=== PATIENT | female | born 1955 | race Caucasian/White ===

== ENCOUNTER 2020-01-12 10:56 | Observation (INO) | payer OTHER ==
--- NOTE | 2020-01-12 11:28 | PDOC ---
History of Present Illness - General Chief Complaint: Chest Pain Stated Complaint: CHEST PAIN Time Seen by Provider: 01/12/20 11:19 History Source: Patient Exam Limitations: Language Barrier - History of Present Illness Initial Comments: 64yF w PMHx HTN morbid obesity presenting w sudden onset moderate midsternal/L chest heaviness which woke her up from sleep at 2am this morning. Pain better sitting up, non exertional. Took 1 muscle relaxant w/o relief. EMS gave 1 nitro on scene d/t pt's allergy to aspirin (n/v/reflux). Pt recently moved from [facility] 2 mo ago, does not have PCP here, did not take any meds for HTN. Denies fever, cough, n/v, SOB, ABD pain, leg swelling. Past History - Medical History Allergies/Adverse Reactions: Allergies Allergy/AdvReac Type Severity Reaction Status Date / Time aspirin AdvReac Verified 01/12/20 11:11 Home Medications: Ambulatory Orders Metoprolol Succinate 0 mg PO DAILY 01/12/20 - Reproductive History Is Patient Now?: No - Psycho-Social/Smoking History Smoking History: Never smoked Have you smoked in the past 12 months: No Information on smoking cessation initiated: No - Substance Abuse Hx (Audit-C & DAST Scrn) How often the patient has a drink containing alcohol: Never Score: In Men: 4 or > Positive; In Women: 3 or > Positive: 0 Screen Result (Pos requires Nsg. Audit-10AR): Negative Review of Systems - Review of Systems Constitutional: No: Chills, Fever HEENTM: No: Eye Pain, Nose Congestion Respiratory: No: Cough, Shortness of Breath Cardiac (ROS): Yes: Chest Pain. No: Palpitations ABD/GI: No: Constipated, Diarrhea, Nausea, Vomiting : No: Burning, Dysuria Musculoskeletal: No: Back Pain, Joint Pain Integumentary: No: Bruising, Flushing Neurological: No: Headache, Seizure Psychiatric: No: Anxiety, Depression Endocrine: No: Intolerance to Cold, Intolerance to Heat Hematologic/Lymphatic: No: Anemia, Blood Clots *Physical Exam - Vital Signs Last Vital Signs Temp Pulse Resp BP Pulse Ox 98.2 F 58 L 17 147/72 98 01/12/20 11:08 01/12/20 13:29 01/12/20 11:08 01/12/20 13:29 01/12/20 13:29 - Physical Exam General Appearance: Yes: Nourished, Appropriately Dressed, Mild Distress, Obese HEENT: positive: EOMI, ROSIE, Normal Voice, Hearing Grossly Normal. negative: Scleral Icterus (R), Scleral Icterus (L) Respiratory/Chest: positive: Chest Tender (sternum, L chest), Lungs Clear, Normal Breath Sounds. negative: Respiratory Distress, Crackles, Rales, Rhonchi, Stridor, Wheezing Cardiovascular: positive: Regular Rhythm, Regular Rate, S1, S2. negative: Murmur Gastrointestinal/Abdominal: positive: Normal Bowel Sounds, Flat, Soft. negative: Tender, Organomegaly Extremity: negative: Pedal Edema Integumentary: positive: Normal Color, Warm. negative: Dry Neurologic: positive: Fully Oriented, Alert, Normal Mood/Affect, Normal Response, Responsive Heart Score/ECG Review - History History: Moderately suspicious - Electrocardiogram EKG: Non specific repolarization disturbance - Age Age: 45-65 - Risk Factors Risk Factors Heart Score: No Hx Hypercholesterolemia, Yes Hx Hypertension, No Hx Diabetes, No Smoking History, No Positive family hx of cardiac disease, Yes Hx Obesity Based on the list above the patient has:: 1-2 risk factors - Troponin Troponin: </= normal limit - Score Heart Score - Total: 4 ED Treatment Course - LABORATORY CBC & Chemistry Diagram: 01/12/20 11:25 01/12/20 11:25 - ADDITIONAL ORDERS Additional order review: Laboratory Results 01/12/20 01/12/20 01/12/20 11:25 11:25 11:25 PT with INR 12.30 INR 1.04 Sodium 141 Potassium 4.4 Chloride 106 Carbon Dioxide 29 Anion Gap 6 L BUN 17.5 Creatinine 0.8 Est GFR (CKD-EPI)AfAm 90.94 Est GFR (CKD-EPI)NonAf 78.46 Random Glucose 112 H Calcium 8.8 Total Bilirubin 0.2 AST 28 ALT 19 Alkaline Phosphatase 135 H Creatine Kinase 71 Troponin I < 0.02 B-Natriuretic Peptide 37.8 Total Protein 7.2 Albumin 3.0 L 01/12/20 11:25 RBC 4.60 MCV 87.5 MCHC 31.8 L RDW 15.6 MPV 9.6 Neutrophils % 65.2 Lymphocytes % 27.6 Monocytes % 5.1 Eosinophils % 1.6 Basophils % 0.5 - RADIOLOGY Radiology Studies Ordered: Category Date Time Status CXRPORT [CHEST X-RAY PORTABLE*] [RAD] Stat Radiology 01/12/20 11:22 Taken - Medications Given in the ED: ED Medications Discontinued Medications Generic Name Dose Route Start Last Admin Trade Name Ayo PRN Reason Stop Dose Admin Ibuprofen 600 mg 01/12/20 11:54 01/12/20 12:24 Motrin - PO 01/12/20 11:55 600 mg ONCE ONE Administration Medical Decision Making - Medical Decision Making 01/12/20 12:03 EKG - sinus rhythm w 1st deg AV block, flat T waves V3-6, poor R wave progr ession, HR 67, QTc 401 CXR - small L pleural effusion, no consolidation/infiltrates --- 64yF w PMHx HTN morbid obesity presenting w sudden onset moderate midsternal/L chest heaviness which woke her up from sleep at 2am this morning. Ddx : ACS (HEART 4, numerous risk factors, abnormal EKG) vs costochondritis (chest tender). Low concern for pericarditis (no recent infection) vs PNA (no consolidation) Given ibuprofen Admit tele/obvs hospitalist for chest pain, ACS r/o, HEART 4 and abnormal EKG - needs PCP and cards referral when discharged No PCP Discharge - Discharge Information Problems reviewed: Yes Clinical Impression/Diagnosis: Chest pain Qualifiers: Chest pain type: unspecified Qualified Code(s): R07.9 - Chest pain, unspecified Condition: Improved - Follow up/Referral Referrals: ON STAFF,NOT [Primary Care Provider] - - Patient Discharge Instructions - Post Discharge Activity
[2020-01-12] MEDS ORDERED: IBUPROFEN 600 MG TABLET (FP) PO ONE ×2 (11:54→12:17)
--- NOTE | 2020-01-12 12:02 | PDOC ---
Heart Score/ECG Review - History History: Moderately suspicious - Electrocardiogram EKG: Non specific repolarization disturbance - Age Age: 45-65 - Risk Factors Risk Factors Heart Score: Yes Hx Hypertension, Yes Hx Obesity Based on the list above the patient has:: 1-2 risk factors - Troponin Troponin: </= normal limit - Score Heart Score - Total: 4 - ECG Impressions Comment:: 01/12/20 12:02 EKG performed at [address] elevations no T waves laterally poor R wave progression Interpreted by me
[2020-01-12 12:58] LABS: BASO % 0.5 % (0-2.0); EOS % 1.6 % (0-4.5); HEMATOCRIT 40.2 % (32.4-45.2); HEMOGLOBIN 12.8 GM/dL (10.7-15.3); LYMPH % 27.6 % (8-40); MCH 27.8 pg (25.7-33.7); MCHC 31.8 g/dl (32.0-36.0); MEAN CELL VOLUME 87.5 fl (80-96); MEAN PLT VOLUME 9.6 fl (7.5-11.1); MONO % 5.1 % (3.8-10.2); NEUT % 65.2 % (42.8-82.8); PLATELET COUNT 324 K/MM3 (134-434); RDW 15.6 % (11.6-15.6)
[2020-01-12 13:31] LABS: ALK PHOS 135 U/L (45-117); ANION GAP 6 MMOL/L (8-16); BILIRUBIN,TOTAL 0.2 mg/dL (0.2-1); BLOOD UREA NITROGEN 17.5 mg/dL (7-18); CALCIUM 8.8 mg/dL (8.5-10.1); CHLORIDE 106 mmol/L (98-107); CO2 29 mmol/L (21-32); CREATININE 0.8 mg/dL (0.55-1.3); GLUCOSE,RANDOM 112 mg/dL (74-106); POTASSIUM 4.4 mmol/L (3.5-5.1); SGOT/AST 28 U/L (15-37); SGPT/ALT 19 U/L (13-61); SODIUM 141 mmol/L (136-145); TOT PROT 7.2 g/dl (6.4-8.2)
[2020-01-12 13:32] LABS: INR 1.04 (0.83-1.09); PROTHROMBIN TIME (PATIENT) 12.3 SEC (9.7-13.0)
--- NOTE | 2020-01-12 14:16 | PDOC ---
Documentation entered by Felicita Cui SCRIBE, acting as scribe for Roque Valdes MD. Roque Valdes MD: This documentation has been prepared by the kdibeSee Ana, SCRIBE, under my direction and personally reviewed by me in its entirety. I confirm that the documentation accurately reflects all work, treatment, procedures, and medical decision making performed by me. Attending Attestation - Resident Resident Name: DonitaMasood - ED Attending Attestation I have performed the following: I have examined & evaluated the patient, The case was reviewed & discussed with the resident, I agree w/resident's findings & plan, Exceptions are as noted - HPI HPI: 01/12/20 11:55 Patient is a 64 year old female with a significant past medical history of morbid obesity who presents to the ED with chest heaviness since 2AM this morning. Patient stated the pain woke her up from her sleep and that it is more towards the left side. Patient said the pain gets better when she sits up. Patient disclosed she attempted to self medicate with muscle relaxant prior to ED arrival but experienced no relief. Patient moved here from [facility] 2 months ago. Pain is worse with exertion comes and goes intermittent Patient denies: fever, chills, nausea, vomiting, SOB, cough, abdominal pain, lower extremity swelling, or any other related symptoms. Allergies: aspirin. 01/12/20 14:12 - Physicial Exam PE: 01/12/20 14:12 Vitals: Triage Vital signs reviewed General Appearance: No acute distress, well nourished well developed, Head: Atraumatic, Cardiac: Regular rate and rhythym, no murmurs, no rubs, no gallops, Lungs: Clear to auscultation bilateral, good air movement bilaterally, Abdomen: Soft, non distended, normal bowel sounds, non tender to palpation Extremities: Full range of motion to all extremities, no cyanosis, clubbing, or edema Skin: Warm and dry, no rashes or lesions, no rash, no petechiae Psych: Normal mood, normal affect - Medical Decision Making 01/12/20 14:13 64 years old recently moved from history of obesity hypertension with intermittent chest discomfort left-sided No history of similar Nonspecific EKG first troponin negative heart score 4 We will observe in hospital for serial troponins and further management. Heart Score/ECG Review - History History: Moderately suspicious - Electrocardiogram EKG: Non specific repolarization disturbance - Age Age: 45-65 - Risk Factors Risk Factors Heart Score: Yes Hx Hypertension, Yes Hx Obesity Based on the list above the patient has:: 1-2 risk factors - Troponin Troponin: </= normal limit - Score Heart Score - Total: 4 - ECG Impressions Comment:: 01/12/20 12:[address] elevations flattening of the T waves laterally poor R wave progression Interpreted by me Discharge - Discharge Information Problems reviewed: Yes Clinical Impression/Diagnosis: Chest pain Qualifiers: Chest pain type: unspecified Qualified Code(s): R07.9 - Chest pain, unspecified Condition: Improved - Follow up/Referral - Patient Discharge Instructions - Post Discharge Activity
--- NOTE | 2020-01-12 14:48 | HP ---
CHIEF COMPLAINT: Chest pain PCP: None HISTORY OF PRESENT ILLNESS: 64 y/o F PMHx HTN, PreDM, Obesity presents with Chest pain x 3 days. Patient is primarily chinese speaking, thus a [employer] interpretor was used ([id number]). Patient says the chest pain is primarily over the left chest, Reproducible with palpation, Nonpleuritic, Nonexertional, 9/10 at worst, currently 0/10 during my interview. Patient says she cannot recall what she was doing when the pain came on 3 days ago, but says it comes and goes and is described as sharp and pressure like without radiation. This AM while asleep, the pain woke her prompting her to [facility]. EMS gave 1 nitro in route and patient was brought to [facility]. This is the first time she has felt pain like this. In addition to palpation, the pain is reproduced with Left arm movement. Denies any recent trauma; No associated falls, MVA's, or heavy lifting. She has tried a muscle relaxant (unable to specify the name) without relief, otherwise she not tried anything else at home to relieve the pain but the pain has improved since arrival in the ED. Endorses normally being able to ambulate 1-2 blocks before fatigue sets in. Endorses Medication noncompliance; has not seen her PCP in 4 months and has not taken meds in the past 6 months. Denies any fevers, chills, Palpitations, SOB, Nausea, vomiting, diarrhea, constipation, dysuria, Hematuria, headache, rash/ Denies any recent medication changes or sick contacts. ER course was notable for: (1) Ibuprofen 600mg x1 (2) (3) Recent Travel: Recently moved from 2 months ago PAST MEDICAL HISTORY: As per HPI PAST SURGICAL HISTORY: Umbilical hernia repair x 2 x 3 Social History: Smoking: Denies Alcohol: Denies Drugs: Denies FAMILY HISTORY: Multiple relatives with Cardiac disease and DM Including her brother. Mother and Father without cardiac hx or diabetes. Allergies aspirin Adverse Reaction (Verified 01/12/20 11:11) HOME MEDICATIONS: Home Medications Medication Instructions Recorded Metoprolol Succinate 0 mg PO DAILY 01/12/20 REVIEW OF SYSTEMS As per [facility] PHYSICAL EXAMINATION Vital Signs - 24 hr 01/12/20 01/12/20 01/12/20 11:08 13:08 13:14 Temperature 98.2 F Pulse Rate 78 78 Pulse Rate [ Left] Respiratory 17 Rate Blood Pressure 147/82 Blood Pressure [Left] O2 Sat by Pulse 99 99 99 Oximetry (%) 01/12/20 13:29 Temperature Pulse Rate Pulse Rate [ 58 L Left] Respiratory Rate Blood Pressure Blood Pressure 147/72 [Left] O2 Sat by Pulse 98 Oximetry (%) GENERAL: A&Ox3, NAD HEAD: NCAT EYES: PERRL, EOMI ENT: Oropharynx clear without exudates. Moist mucous membranes. NECK: No JVD LUNGS: Diminished breath sounds at the bases, Otherwise CTAB, No wheezes, no crackles HEART: RRR, S1 S2. Left chest and Left upper back are tender to palpation, no signs of trauma, no ecchymosis, no lacerations. ABDOMEN: Obese, Soft, nontender, not distended, + bowel sounds, no guarding, no rebound MUSCULOSKELETAL: No CVA tenderness. EXTREMITIES: No peripheral edema. NEUROLOGICAL: Cranial nerves II-XII intact. Normal speech. Gross sensation intact throughout. 5/5 muscle strength throughout. PSYCHIATRIC: Cooperative. SKIN: Warm, dry Laboratory Results - last 24 hr 01/12/20 01/12/20 01/12/20 11:25 11:25 11:25 WBC 8.0 RBC 4.60 Hgb 12.8 Hct 40.2 MCV 87.5 MCH 27.8 MCHC 31.8 L RDW 15.6 Plt Count 324 MPV 9.6 Absolute Neuts (auto) 5.2 Neutrophils % 65.2 Lymphocytes % 27.6 Monocytes % 5.1 Eosinophils % 1.6 Basophils % 0.5 Nucleated RBC % 0 PT with INR 12.30 INR 1.04 Sodium 141 Potassium 4.4 Chloride 106 Carbon Dioxide 29 Anion Gap 6 L BUN 17.5 Creatinine 0.8 Est GFR (CKD-EPI)AfAm 90.94 Est GFR (CKD-EPI)NonAf 78.46 Random Glucose 112 H Calcium 8.8 Total Bilirubin 0.2 AST 28 ALT 19 Alkaline Phosphatase 135 H Creatine Kinase 71 Troponin I < 0.02 B-Natriuretic Peptide Total Protein 7.2 Albumin 3.0 L 01/12/20 01/12/20 11:25 13:55 WBC RBC Hgb Hct MCV MCH MCHC RDW Plt Count MPV Absolute Neuts (auto) Neutrophils % Lymphocytes % Monocytes % Eosinophils % Basophils % Nucleated RBC % PT with INR INR Sodium Potassium Chloride Carbon Dioxide Anion Gap BUN Creatinine Est GFR (CKD-EPI)AfAm Est GFR (CKD-EPI)NonAf Random Glucose Calcium Total Bilirubin AST ALT Alkaline Phosphatase Creatine Kinase Troponin I < 0.02 B-Natriuretic Peptide 37.8 Total Protein Albumin ASSESSMENT/PLAN: 64 y/o F PMHx HTN, PreDM, Obesity presents with Chest pain x 3 days. Patient is primarily chinese speaking, thus a [employer] interpretor was used ([employer] [id number]). Patient says the chest pain is primarily over the left chest, Reproducible with palpation, Nonpleuritic, Nonexertional, 9/10 at worst, currently 0/10 during my interview. Patient says she cannot recall what she was doing when the pain came on 3 days ago, but says it comes and goes and is described as sharp and pressure like without radiation. This AM while asleep, the pain woke her prompting her to [facility]. EMS gave 1 nitro in route and patient was brought to [facility]. #Chest Pain -Likely MSK in nature; however given risk factors of HTN, PreDM, Obesity will need r/o ACS -CXR does not reveal Pneumothorax, Infiltrate. -IRVING Risk Index score 21 (Low Risk); Will calculate ASCVD 10 year risk pending further labwork -Trop < 0.02 x1, Trend -EKG without ST segment changes, ?TWI in V1-V3 and T Wave flattening in V4-V6. Will Repeat -ASA 81mg daily; Allergy to ASA is Nausea, vomiting and/or reflux, No hives or anaphylaxis in the past -Ibuprofen PRN for Pain -Check Lipid panel, A1c, TSH -Cardio Consulted; Will discuss the need for inpatient Echo and Stress Test -Monitor on Tele #HTN -Noncompliant with Meds and without PCP follow up -Has been normotensive thus far; Would consider ACEi use if BP > 150/90 given hx of PreDM #PreDM -Check A1c #Obesity -Dietary consult -Lifestyle modifications discussed #FEN -No standing fluids -Replete Lytes PRN -Low Na/DM Diet #PPx -DVT: SQH -GI: PPI while on NSAID Dispo: admit to Tele-Obs Family Medical History Family History: As Documented Visit type - Emergency Visit Emergency Visit: Yes ED Registration Date: 01/12/20 Care time: The patient presented to the Emergency Department on the above date and was hospitalized for further evaluation of their emergent condition. - New Patient This patient is new to me today: Yes Date on this admission: 01/15/20 - Critical Care Critical Care patient: No ATTENDING PHYSICIAN STATEMENT I saw and evaluated the patient. I reviewed the resident's note and discussed the case with the resident. I agree with the resident's findings and plan as documented. SUBJECTIVE: OBJECTIVE: ASSESSMENT AND PLAN:
--- NOTE | 2020-01-12 15:40 | PN ---
Teaching Attending Note Name of Resident: Brandi Funk ATTENDING PHYSICIAN STATEMENT I saw and evaluated the patient. I reviewed the resident's note and discussed the case with the resident. I agree with the resident's findings and plan as documented. SUBJECTIVE: Left-sided chest pain OBJECTIVE: Vital Signs Temperature 98.2 F 01/12/20 11:08 Pulse Rate 58 L 01/12/20 13:29 Respiratory Rate 17 01/12/20 11:08 Blood Pressure 147/72 01/12/20 13:29 O2 Sat by Pulse Oximetry (%) 98 01/12/20 13:29 General: Middle-aged female, comfortable, not in distress, complaint left-sided chest pain HEENT mucous membranes moist, no anemia, no jaundice, PERRLA, no nystagmus Neck: No JVD, supple, no bruit, thyroid palpably normal, normal carotid pulsations. Chest: Tenderness on the left chest wall pectoral area and submammary area, clear to auscultation bilaterally CVS: S1-S2 regular no murmur/gallop/rub Abdomen: Nondistended, soft, bowel sounds present. Extremities: No edema., No Calf tenderness, pulses present FARO DEALER: AO X3 , no gross motor sensory deficit CBC,CMP WBC 8.0 K/mm3 (4.0-10.0) 01/12/20 11:25 RBC 4.60 M/mm3 (3.60-5.2) 01/12/20 11:25 Hgb 12.8 GM/dL (10.7-15.3) 01/12/20 11:25 Hct 40.2 % (32.4-45.2) 01/12/20 11:25 MCV 87.5 fl (80-96) 01/12/20 11:25 MCH 27.8 pg (25.7-33.7) 01/12/20 11:25 MCHC 31.8 g/dl (32.0-36.0) L 01/12/20 11:25 RDW 15.6 % (11.6-15.6) 01/12/20 11:25 Plt Count 324 K/MM3 (134-434) 01/12/20 11:25 MPV 9.6 fl (7.5-11.1) 01/12/20 11:25 Absolute Neuts (auto) 5.2 K/mm3 (1.5-8.0) 01/12/20 11:25 Neutrophils % 65.2 % (42.8-82.8) 01/12/20 11:25 Lymphocytes % 27.6 % (8-40) 01/12/20 11:25 Monocytes % 5.1 % (3.8-10.2) 01/12/20 11:25 Eosinophils % 1.6 % (0-4.5) 01/12/20 11:25 Basophils % 0.5 % (0-2.0) 01/12/20 11:25 Nucleated RBC % 0 % (0-0) 01/12/20 11:25 Sodium 141 mmol/L (136-145) 01/12/20 11:25 Potassium 4.4 mmol/L (3.5-5.1) 01/12/20 11:25 Chloride 106 mmol/L (98-107) 01/12/20 11:25 Carbon Dioxide 29 mmol/L (21-32) 01/12/20 11:25 Anion Gap 6 MMOL/L (8-16) L 01/12/20 11:25 BUN 17.5 mg/dL (7-18) 01/12/20 11:25 Creatinine 0.8 mg/dL (0.55-1.3) 01/12/20 11:25 Est GFR (CKD-EPI)AfAm 90.94 01/12/20 11:25 Est GFR (CKD-EPI)NonAf 78.46 01/12/20 11:25 Random Glucose 112 mg/dL (74-106) H 01/12/20 11:25 Calcium 8.8 mg/dL (8.5-10.1) 01/12/20 11:25 Total Bilirubin 0.2 mg/dL (0.2-1) 01/12/20 11:25 AST 28 U/L (15-37) 01/12/20 11:25 ALT 19 U/L (13-61) 01/12/20 11:25 Alkaline Phosphatase 135 U/L (45-117) H 01/12/20 11:25 Creatine Kinase 71 U/L (26-192) 01/12/20 11:25 Troponin I < 0.02 ng/ml (0.00-0.05) 01/12/20 13:55 B-Natriuretic Peptide 37.8 pg/ml (5-125) 01/12/20 11:25 Total Protein 7.2 g/dl (6.4-8.2) 01/12/20 11:25 Albumin 3.0 g/dl (3.4-5.0) L 01/12/20 11:25 EKG: Normal sinus rhythm first degree heart block nonspecific ST-T changes Chest x-ray: No obstruction no acute infiltrate ASSESSMENT AND PLAN: 64 years old female Grenadian-speaking, poor historian history is taken with a [employer] interpretor ([id number]) history of HTN, PreDM, Obesity remote history of left chest wall trauma, today presented with 3 days history of intermittent left-sided chest wall pain and numbness without any provocation, last night around 2 AM felt severe pain while sleeping came to ED for evaluation, in the ED hemodynamically stable, normal serial cardiac enzyme, EKG shows nonspecific ST changes consisting heart score of 4 admitted for observation to rule out ACS. . Impression: Atypical chest pain Chest pain:HEART score is 4 but presentation is atypical, normal cardiac enzyme EKG nonspecific changes, follow-up lipid panel, TSH, hemoglobin A1c, serial cardiac enzyme and EKGs, at present does not require any blood pressure medication consider telemetry monitoring, Tylenol 650 mg every 6 hourly, patient claims that she has intolerance to aspirin no allergies consider aspirin 81 mg once with antacid aspirin , cardiology consult if patient's remained stable normal serial cardiac enzyme and EKGs and symptoms improved proceeding work-up can be done as an outpatient. Hypertension: Patient has a history of hypertension but not on any medication at present blood pressure is well controlled observe if needed at lisinopril 10 mg and optimize as needed Prediabetic: Random plasma glucose normal 112, follow-up hemoglobin A1c, Accu- Chek twice daily, no indication for correction dose insulin. Obesity: Morbidly obese needs weight reduction. Discussed with the resident, agree plan of care and evaluation.
[2020-01-12] MEDS ORDERED: PANTOPRAZOLE 40 MG TABLET ONE (16:28)
[2020-01-12] MEDS: PANTOPRAZOLE 40 MG TABLET PO SCH (16:55)
[2020-01-12] MEDS ORDERED: ASPIRIN 81 MG CHEWABLE TABLETS ONE (17:17)
[2020-01-12] MEDS: ASPIRIN 81 MG CHEWABLE TABLETS PO SCH (17:17)
--- NOTE | 2020-01-12 17:30 | CON.CARD ---
Consult Consult Specialty:: cardiology Reason for Consultation:: chest heaviness - History of Present Illness Chief Complaint: Pt A&Ox3; chest pain now mild History of Present Illness: Ms. Aldridge is a 64 year old female with a significant past medical history of morbid obesity who presents to the ED with chest heaviness since 2AM this morning. Patient stated the pain woke her up from her sleep and that it is more towards the left side. Patient said the pain gets better when she sits up. Patient disclosed she attempted to self medicate with muscle relaxant prior to ED arrival but experienced no relief. Patient moved here from [facility] 2 months ago. Pain is worse with exertion; comes and goes; intermittent. It started about a month ago; has become more severe and sustained for the past 3 days. - History Source History Provided By: Patient, Medical Record - Past Medical History ...: No - Smoking History Smoking history: Never smoked Have you smoked in the past 12 months: No Home Medications - Allergies Allergies/Adverse Reactions: Allergies Allergy/AdvReac Type Severity Reaction Status Date / Time aspirin AdvReac Verified 01/12/20 11:11 - Home Medications Home Medications: Ambulatory Orders Metoprolol Succinate 0 mg PO DAILY 01/12/20 Vital Signs: Vital Signs Temperature 98.2 F 01/12/20 11:08 Pulse Rate 58 L 01/12/20 13:29 Respiratory Rate 17 01/12/20 11:08 Blood Pressure 147/72 01/12/20 13:29 O2 Sat by Pulse Oximetry (%) 98 01/12/20 13:29 - Other Data Labs, Other Data: CBC, BMP 01/12/20 11:25 01/12/20 11:25 INR, PTT INR 1.04 (0.83-1.09) 01/12/20 11:25 Troponin, BNP 01/12/20 01/12/20 01/12/20 11:25 11:25 13:55 Troponin I < 0.02 < 0.02 B-Natriuretic Peptide 37.8 Troponin, BNP 01/12/20 01/12/20 01/12/20 11:25 11:25 13:55 Troponin I < 0.02 < 0.02 B-Natriuretic Peptide 37.8
[2020-01-12] MEDS ORDERED: HEPARIN NA (PORCINE) 5,000 UNITS/ML 1ML VIAL ONE (18:03)
[2020-01-12] MEDS: HEPARIN NA (PORCINE) 5,000 UNITS/ML 1ML VIAL SQ SCH (18:07)
[2020-01-12 18:55] VITALS: BMI 43.7
[2020-01-12 19:36] LABS: CHOLESTEROL 197 mg/dL (50-200); HDL CHOLESTEROL 50 mg/dL (40-60); LDL CHOLESTEROL (ONLY SJRH) 118 mg/dL (5-100); TRIGLYCERIDES 108 mg/dL (0-150)
[2020-01-13] MEDS: HEPARIN NA (PORCINE) 5,000 UNITS/ML 1ML VIAL SQ SCH ×4 (03:50→22:52)
[2020-01-13 08:04] LABS: BASO % 0.7 % (0-2.0); EOS % 1.5 % (0-4.5); HEMATOCRIT 38.9 % (32.4-45.2); HEMOGLOBIN 12.5 GM/dL (10.7-15.3); MCH 28.5 pg (25.7-33.7); MCHC 32.1 g/dl (32.0-36.0); MEAN CELL VOLUME 88.6 fl (80-96); MEAN PLT VOLUME 9.7 fl (7.5-11.1); MONO % 8.1 % (3.8-10.2); NEUT % 67.7 % (42.8-82.8); PLATELET COUNT 307 K/MM3 (134-434); RBC 4.39 M/mm3 (3.60-5.2); RDW 15.7 % (11.6-15.6); WHITE BLOOD COUNT 10.4 K/mm3 (4.0-10.0)
[2020-01-13 08:17] LABS: BILIRUBIN,TOTAL 0.3 mg/dL (0.2-1); BLOOD UREA NITROGEN 18.8 mg/dL (7-18); CALCIUM 8.5 mg/dL (8.5-10.1); CREATININE 0.6 mg/dL (0.55-1.3); MAGNESIUM 2.2 mg/dL (1.8-2.4); PHOSPHOROUS 3.5 mg/dL (2.5-4.9); POTASSIUM 4.2 mmol/L (3.5-5.1); TOT PROT 6.9 g/dl (6.4-8.2)
[2020-01-13] MEDS: PANTOPRAZOLE 40 MG TABLET PO SCH (09:41)
[2020-01-13] MEDS: ASPIRIN 81 MG CHEWABLE TABLETS PO SCH (09:41)
[2020-01-13] MEDS: IBUPROFEN 600 MG TABLET (FP) PO PRN (09:42)
--- NOTE | 2020-01-13 11:28 | PN ---
Progress Note, Physician Chief Complaint: Events noted (coverage for Dr. Burrows and Whit) Not in distress History of Present Illness: Patient was seen and examined. Awake and alert. Chart was reviewed Denies chest pain, SOB or palpitations - Current Medication List Current Medications: Active Medications Aspirin (Asa -) 81 mg PO DAILY [facility] Last Admin: 01/13/20 09:41 Dose: 81 mg Documented by: Heparin Sodium (Porcine) (Heparin -) 5,000 unit SQ Q8H-IV [facility] Last Admin: 01/13/20 09:41 Dose: 5,000 unit Documented by: Ibuprofen (Motrin -) 600 mg PO Q8H PRN PRN Reason: PAIN LEVEL 6-10 Last Admin: 01/13/20 09:42 Dose: 600 mg Documented by: Pantoprazole Sodium (Protonix -) 40 mg PO DAILY [facility] Last Admin: 01/13/20 09:41 Dose: 40 mg Documented by: - Objective Vital Signs: Vital Signs Temperature 98.0 F 01/13/20 08:42 Pulse Rate 79 01/13/20 08:42 Respiratory Rate 18 01/13/20 08:45 Blood Pressure 137/72 01/13/20 08:42 O2 Sat by Pulse Oximetry (%) 97 01/13/20 08:45 Eyes: Yes: PERRL HENT: Yes: Atraumatic Neck: Yes: Supple Cardiovascular: Yes: Regular Rate and Rhythm, S1, S2 Respiratory: Yes: CTA Bilaterally Gastrointestinal: Yes: Normal Bowel Sounds, Soft. No: Tenderness Edema: No Additional Findings/Remarks: - Review of Systems Constitutional: denies: Chills, Fever Cardiovascular: (+) Chest Pain, denies:Shortness of Breath. denies: Palpitations Respiratory: denies SOB. denies: Cough, Hemoptysis, Orthopnea, PND Gastrointestinal: denies: Abdominal Pain, Constipation, Diarrhea, Melena, Nausea, Rectal Bleeding, Vomiting Neurological: denies: Dizziness, Headache, Seizure, Syncope Labs: CBC, BMP 01/13/20 05:51 01/13/20 05:51 INR, PTT INR 1.04 (0.83-1.09) 01/12/20 11:25 Problem List - Problems (1) HTN (hypertension) Code(s): I10 - ESSENTIAL (PRIMARY) HYPERTENSION (2) Hypercholesterolemia Code(s): E78.00 - PURE HYPERCHOLESTEROLEMIA, UNSPECIFIED (3) Chest pain Code(s): R07.9 - CHEST PAIN, UNSPECIFIED Qualifiers: Chest pain type: unspecified Qualified Code(s): R07.9 - Chest pain, unspecified Assessment/Plan 1. Chest pain, rule out CAD 2. HTN 3. Hypercholesterolemia PLAN: 1. Troponins negative 2. ASA 81 mg QD 3. Add Metoprolol Succinate 25 mg QD 4. Add Atorvastatin 40 mg QHS 5. As per primary cardiology service, schedule nuclear MPI and echocardiography on Wednesday Further plans are to follow Dr. Nunez to resume care on Wednesday Tj Cuevas MD
--- NOTE | 2020-01-13 15:58 | PN ---
Progress Note, Physician Chief Complaint: Stable, with no acute events overnight History of Present Illness: 64 y/o Female PMHx HTN, PreDM, Obesity presents with Chest pain x 3 days. Patient is primarily sao tomean speaking, thus a Sonda41 interpretor was used ([id number]). Patient says the chest pain is primarily over the left chest, Reproducible with palpation, Nonpleuritic, Nonexertional, 9/10 at worst, curren tly 0/10 during my interview. Patient says she cannot recall what she was doing when the pain came on 3 days ago, but says it comes and goes and is described as sharp and pressure like without radiation. This AM while asleep, the pain woke her prompting her to [facility]. EMS gave 1 nitro in route and patient was brought to [facility]. - Current Medication List Current Medications: Active Medications Aspirin (Asa -) 81 mg PO DAILY [facility] Last Admin: 01/13/20 09:41 Dose: 81 mg Documented by: Heparin Sodium (Porcine) (Heparin -) 5,000 unit SQ Q8H-IV [facility] Last Admin: 01/13/20 09:41 Dose: 5,000 unit Documented by: Ibuprofen (Motrin -) 600 mg PO Q8H PRN PRN Reason: PAIN LEVEL 6-10 Last Admin: 01/13/20 09:42 Dose: 600 mg Documented by: Pantoprazole Sodium (Protonix -) 40 mg PO DAILY [facility] Last Admin: 01/13/20 09:41 Dose: 40 mg Documented by: - Objective Vital Signs: Vital Signs Temperature 98.2 F 01/13/20 14:15 Pulse Rate 76 01/13/20 14:15 Respiratory Rate 18 01/13/20 14:15 Blood Pressure 147/76 01/13/20 14:15 O2 Sat by Pulse Oximetry (%) 97 01/13/20 08:45 Constitutional: Yes: Well Nourished, No Distress, Calm Eyes: Yes: WNL, Conjunctiva Clear, EOM Intact HENT: Yes: WNL, Atraumatic, Normocephalic Neck: Yes: WNL, Supple, Trachea Midline, Thyromegaly Cardiovascular: Yes: WNL Respiratory: Yes: WNL, Regular, CTA Bilaterally Gastrointestinal: Yes: WNL, Normal Bowel Sounds, Soft Musculoskeletal: Yes: WNL Extremities: Yes: WNL Edema: No Peripheral Pulses WNL: Yes Integumentary: Yes: WNL Wound/Incision: Yes: Clean/Dry, Well Approximated Neurological: Yes: WNL, Alert, Oriented ...Motor Strength: WNL Psychiatric: Yes: WNL, Alert, Oriented Labs: CBC, BMP 01/13/20 05:51 01/13/20 05:51 INR, PTT INR 1.04 (0.83-1.09) 01/12/20 11:25 Impression/Plan Impression/Plan: 64 y/o Female with a PMHx notable for HTN, PreDM, Obesity presents with Chest pain x 3 days. Patient is primarily sao tomean speaking, thus a Sonda41 interpretor was used ([employer] [id number]). Patient says the chest pain is primarily over the left chest, Reproducible with palpation, Nonpleuritic, Nonexertional, 9/10 at worst, currently 0/10 during my interview. Patient says she cannot recall what she was doing when the pain came on 3 days ago, but says it comes and goes and is described as sharp and pressure like without radiation. This AM while asleep, the pain woke her prompting her to [facility]. EMS gave 1 nitro in route and patient was brought to [facility]. #Chest Pain -Likely MSK in nature; however given risk factors of HTN, Pre-diabetes, Obesity will need r/o ACS -CXR does not reveal Pneumothorax, Infiltrate. -IRVING Risk Index score 21 (Low Risk); Will calculate ASCVD 10 year risk pending further labwork -Trop < 0.02 x1, Trend -EKG without ST segment changes, ?TWI in V1-V3 and T Wave flattening in V4-V6. Will Repeat -ASA 81mg daily; Allergy to ASA is Nausea, vomiting and/or reflux, No hives or anaphylaxis in the past -Ibuprofen PRN for Pain -Lipid panel with MIB=246, Chol 181 TSH normal at 1.03 -Cardio Consulted; Will discuss the need for inpatient Echo and Stress Test -Monitor on Tele #HTN -Noncompliant with Meds and without PCP follow up -Has been normotensive thus far; Would consider ACEi use if BP > 150/90 given hx of PreDM #PreDM -Check A1c=6.0 #Obesity -Dietary consult -Lifestyle modifications discussed #FEN -No standing fluids -Replete Lytes as needed -Low Na/DM Diet #PPx -DVT: SQH SQ8 hours -GI: PPI while on NSAID Visit type - Emergency Visit Emergency Visit: Yes ED Registration Date: 01/12/20 Care time: The patient presented to the Emergency Department on the above date and was hospitalized for further evaluation of their emergent condition. - New Patient This patient is new to me today: Yes Date on this admission: 01/13/20 - Critical Care Critical Care patient: No - Discharge Referral Referred to [facility] Med P.C.: No
[2020-01-13] MEDS: metoPROLOL SUCCINATE 25 MG TAB.SR.24H (FP) PO SCH (17:36)
[2020-01-13] MEDS: ATORVASTATIN CA 40 MG TABLET (FP) PO SCH (22:52)
[2020-01-14] MEDS: HEPARIN NA (PORCINE) 5,000 UNITS/ML 1ML VIAL SQ SCH ×3 (05:45→21:34)
[2020-01-14] MEDS: IBUPROFEN 600 MG TABLET (FP) PO PRN (05:59)
[2020-01-14] MEDS: PANTOPRAZOLE 40 MG TABLET PO SCH (09:33)
[2020-01-14] MEDS: metoPROLOL SUCCINATE 25 MG TAB.SR.24H (FP) PO SCH (09:33)
[2020-01-14] MEDS: ASPIRIN 81 MG CHEWABLE TABLETS PO SCH (09:33)
--- NOTE | 2020-01-14 10:08 | PN ---
Progress Note, Physician Chief Complaint: Events noted (coverage for Dr. Burrows and Whit) Not in distress History of Present Illness: Patient was seen and examined. Awake and alert. Chart was reviewed Denies chest pain, SOB or palpitations - Current Medication List Current Medications: Active Medications Aspirin (Asa -) 81 mg PO DAILY [facility] Last Admin: 01/14/20 09:33 Dose: 81 mg Documented by: Atorvastatin Calcium (Lipitor -) 40 mg PO HS [facility] Last Admin: 01/13/20 22:52 Dose: 40 mg Documented by: Heparin Sodium (Porcine) (Heparin -) 5,000 unit SQ TID [facility] Last Admin: 01/14/20 05:45 Dose: 5,000 unit Documented by: Ibuprofen (Motrin -) 600 mg PO Q8H PRN PRN Reason: PAIN LEVEL 6-10 Last Admin: 01/14/20 05:59 Dose: 600 mg Documented by: Metoprolol Succinate (Toprol Xl -) 25 mg PO DAILY [facility] Last Admin: 01/14/20 09:33 Dose: 25 mg Documented by: Pantoprazole Sodium (Protonix -) 40 mg PO DAILY [facility] Last Admin: 01/14/20 09:33 Dose: 40 mg Documented by: - Objective Vital Signs: Vital Signs Temperature 97.6 F 01/14/20 02:00 Pulse Rate 75 01/14/20 06:00 Respiratory Rate 20 01/14/20 06:00 Blood Pressure 139/75 01/14/20 06:00 O2 Sat by Pulse Oximetry (%) 95 01/14/20 00:00 Neck: Yes: Supple Cardiovascular: Yes: Regular Rate and Rhythm, S1, S2 Respiratory: Yes: CTA Bilaterally Gastrointestinal: Yes: Normal Bowel Sounds, Soft. No: Tenderness Edema: No Additional Findings/Remarks: - Review of Systems Constitutional: denies: Chills, Fever Cardiovascular: (+) Chest Pain, denies:Shortness of Breath. denies: Palpitations Respiratory: denies SOB. denies: Cough, Hemoptysis, Orthopnea, PND Gastrointestinal: denies: Abdominal Pain, Constipation, Diarrhea, Melena, Nausea, Rectal Bleeding, Vomiting Neurological: denies: Dizziness, Headache, Seizure, Syncope Labs: CBC, BMP 01/13/20 05:51 01/13/20 05:51 INR, PTT INR 1.04 (0.83-1.09) 01/12/20 11:25 Problem List - Problems (1) HTN (hypertension) Code(s): I10 - ESSENTIAL (PRIMARY) HYPERTENSION (2) Hypercholesterolemia Code(s): E78.00 - PURE HYPERCHOLESTEROLEMIA, UNSPECIFIED (3) Chest pain Code(s): R07.9 - CHEST PAIN, UNSPECIFIED Qualifiers: Chest pain type: unspecified Qualified Code(s): R07.9 - Chest pain, unspecified Assessment/Plan 1. Chest pain, rule out CAD 2. HTN 3. Hypercholesterolemia PLAN: 1. Troponins negative 2. ASA 81 mg QD 3. Continue Metoprolol Succinate 25 mg QD 4. Continue Atorvastatin 40 mg QHS 5. As per primary cardiology service, scheduled nuclear MPI and echocardiography for Wednesday Further plans are to follow Dr. Nunez to resume care on Wednesday Tj Cuevas MD
--- NOTE | 2020-01-14 11:37 | PN ---
Physical Exam: SUBJECTIVE: Patient seen and examined 01/14/20: pt denies any chest pain or shortness of breath currently; laying in bed comfortably. denies any complaints this am OBJECTIVE: Vital Signs Period Temp Pulse Resp BP Sys/Aguirre Pulse Ox Last 24 Hr 97.6 F-98.2 F 70-83 18-20 133-157/56-76 95-98 GENERAL: The patient is awake, alert, and fully oriented, in no acute distress. HEAD: Normal with no signs of trauma. EYES: extraocular movements intact, sclera anicteric, conjunctiva clear. No ptosis. ENT: Ears normal, nares patent, oropharynx clear without exudates, moist mucous membranes. NECK: Trachea midline, full range of motion, supple. LUNGS: Breath sounds equal, clear to auscultation bilaterally, no wheezes, no crackles, no accessory muscle use. HEART: Regular rate and rhythm, S1, S2 without murmur, rub or gallop. ABDOMEN: Soft, nontender, nondistended, normoactive bowel sounds, no guarding, no rebound, no hepatosplenomegaly, no masses. obese EXTREMITIES: 2+ pulses, warm, well-perfused, no edema. NEUROLOGICAL: Cranial nerves II through XII grossly intact. Normal speech, gait not observed. PSYCH: Normal mood, normal affect. SKIN: Warm, dry, normal turgor, no rashes or lesions noted Active Medications Generic Name Dose Route Start Last Admin Trade Name Freq PRN Reason Stop Dose Admin Aspirin 81 mg 01/12/20 17:00 01/14/20 09:33 Asa - PO 81 mg DAILY [facility] Administration Atorvastatin Calcium 40 mg 01/13/20 22:00 01/13/20 22:52 Lipitor - PO 40 mg HS [facility] Administration Heparin Sodium (Porcine) 5,000 unit 01/13/20 22:00 01/14/20 05:45 Heparin - SQ 5,000 unit TID [facility] Administration Ibuprofen 600 mg 01/12/20 15:14 01/14/20 05:59 Motrin - PO 600 mg Q8H PRN Administration PAIN LEVEL 6-10 Metoprolol Succinate 25 mg 01/13/20 16:30 01/14/20 09:33 Toprol Xl - PO 25 mg DAILY [facility] Administration Pantoprazole Sodium 40 mg 01/12/20 15:30 01/14/20 09:33 Protonix - PO 40 mg DAILY [facility] Administration wbc 10K yest ce neg x 3 ASSESSMENT/PLAN: 64 y/o Female with a PMHx notable for HTN, PreDM, Obesity presents with Chest pain x 3 days. #Chest Pain -Likely MSK in nature; however given risk factors of HTN, Pre-diabetes, Obesity will need r/o ACS CE neg x 3 sets -on ASA 81mg daily; Allergy to ASA is Nausea, vomiting and/or reflux, No hives or anaphylaxis in the past -Ibuprofen PRN for Pain -Lipid panel with ALS=784, Chol 181 TSH normal at 1.03 -Cardio: For nuc stress and echo tomorrow -Monitor on Tele: nsr@60s couple beats of nsvt #HTN -Noncompliant with Meds and without PCP follow up -Bp stable - on toprol currently #PreDM -A1c=6.0 #Obesity -Dietary consult -Lifestyle modifications discussed #FEN -No standing fluids -Replete Lytes as needed -Low Na/DM Diet #PPx -DVT: SQH SQ8 hours -GI: PPI while on NSAID Visit type - Emergency Visit Emergency Visit: Yes ED Registration Date: 01/12/20 Care time: The patient presented to the Emergency Department on the above date and was hospitalized for further evaluation of their emergent condition. - New Patient This patient is new to me today: Yes Date on this admission: 01/14/20 - Critical Care Critical Care patient: No - Discharge Referral Referred to [facility] Med P.C.: No
--- NOTE | 2020-01-14 18:35 | EKG ---
Test Reason : Blood Pressure : / mmHG Vent. Rate : 064 BPM Atrial Rate : 064 BPM P-R Int : 218 ms QRS Dur : 084 ms QT Int : 440 ms P-R-T Axes : 066 062 050 degrees QTc Int : 453 ms SINUS RHYTHM WITH 1ST DEGREE A-V BLOCK NONSPECIFIC T WAVE ABNORMALITY ABNORMAL ECG WHEN COMPARED WITH ECG OF 12-JAN-2020 11:06, QT HAS LENGTHENED Confirmed by MD MISTY, ROSEMARIE ([id number]) on 01/14/2020 6:34:52 PM Referred By: Confirmed By:ROSEMARIE JAY MD
--- NOTE | 2020-01-14 18:45 | EKG ---
Test Reason : Blood Pressure : / mmHG Vent. Rate : 068 BPM Atrial Rate : 068 BPM P-R Int : 220 ms QRS Dur : 080 ms QT Int : 378 ms P-R-T Axes : 060 051 040 degrees QTc Int : 401 ms SINUS RHYTHM WITH 1ST DEGREE A-V BLOCK LEFT VENTRICULAR HYPERTROPHY NONSPECIFIC T WAVE ABNORMALITY ABNORMAL ECG NO PREVIOUS ECGS AVAILABLE Confirmed by MD JAY MOYSES ([id number]) on 01/14/2020 6:45:33 PM Referred By: Confirmed By:ROSEMARIE JAY MD
[2020-01-14] MEDS: ATORVASTATIN CA 40 MG TABLET (FP) PO SCH (21:35)
[2020-01-15] MEDS: HEPARIN NA (PORCINE) 5,000 UNITS/ML 1ML VIAL SQ SCH ×2 (06:08→14:38)
[2020-01-15 07:31] LABS: HEMATOCRIT 38.6 % (32.4-45.2); HEMOGLOBIN 12.4 GM/dL (10.7-15.3); MCH 28.1 pg (25.7-33.7); MCHC 32.1 g/dl (32.0-36.0); MEAN CELL VOLUME 87.6 fl (80-96); MEAN PLT VOLUME 9.4 fl (7.5-11.1); PLATELET COUNT 290 K/MM3 (134-434); RBC 4.41 M/mm3 (3.60-5.2); RDW 15.8 % (11.6-15.6); WHITE BLOOD COUNT 9.2 K/mm3 (4.0-10.0)
[2020-01-15] MEDS ORDERED: DEXTROSE 4 GM TAB.CHEW PO PRN (09:01)
[2020-01-15] MEDS ORDERED: REGADENOSON 0.4 MG/5 ML PRE-FILLED SYRINGE IVPUSH ONE ×2 (09:30→11:51)
[2020-01-15] MEDS: metoPROLOL SUCCINATE 25 MG TAB.SR.24H (FP) PO SCH (14:37)
[2020-01-15] MEDS: ASPIRIN 81 MG CHEWABLE TABLETS PO SCH (14:37)
[2020-01-15] MEDS: PANTOPRAZOLE 40 MG TABLET PO SCH (14:37)
[2020-01-15 15:40] VITALS: PULSE 59
--- NOTE | 2020-01-15 16:24 | DS ---
Physical Exam: SUBJECTIVE: Patient seen and examined OBJECTIVE: Vital Signs Period Temp Pulse Resp BP Sys/Aguirre Pulse Ox Last 24 Hr 97.4 F-98.1 F 59-65 18-20 117-150/50-72 93-97 PHYSICAL EXAM GENERAL: The patient is awake, alert, and fully oriented, in no acute distress. seated in bedside chair HEAD: Normal with no signs of trauma. EYES: PERRL, extraocular movements intact, sclera anicteric, conjunctiva clear. ENT: Ears normal, nares patent, oropharynx clear without exudates, moist mucous membranes. NECK: Trachea midline, full range of motion, supple. LUNGS: Breath sounds equal, clear to auscultation bilaterally, no wheezes, no crackles, no accessory muscle use. HEART: Regular rate and rhythm, S1, S2 without murmur, rub or gallop. ABDOMEN: Soft, nontender, +obese abdomen, normoactive bowel sounds, no guarding, no rebound, no hepatosplenomegaly, no masses. EXTREMITIES: 2+ pulses, warm, well-perfused, no edema. NEUROLOGICAL: Cranial nerves II through XII grossly intact. Normal speech, gait not observed. PSYCH: Normal mood, normal affect. SKIN: Warm, dry, normal turgor, no rashes or lesions noted. LABS Laboratory Results - last 24 hr 01/15/20 01/15/20 06:35 08:39 WBC 9.2 RBC 4.41 Hgb 12.4 Hct 38.6 MCV 87.6 MCH 28.1 MCHC 32.1 RDW 15.8 H Plt Count 290 MPV 9.4 POC Glucometer 77 HOSPITAL COURSE: Date of Admission:01/12/20 Date of Discharge: 01/15/20 Minutes to complete discharge: 50 Discharge Summary Problems reviewed: Yes Reason For Visit: CHEST PAIN Current Active Problems Chest pain (Acute) HTN (hypertension) (Acute) Hypercholesterolemia (Acute) Procedures: Principal: CXR 01/15/2020. Impression: no acute chest pathology. See above. Reported by Dr. Yury Christine MD. EKG: NSR with 1deg AVB. LAbs. trop x 2 negative. Tchol 197. LDL 118. Trig 108. HDL 50. A1C 6.0. COVID- 19 NEGATIVE (not detected) Other Procedures: Nuclear Stress test 01/15/2020. conclusion: 1. appropriate blood pressure response. 2. Patient remained asymptomatic. 3. Non-specific ST changes in inferior and lateral leads. Nuclear Results. 1. small size, mild intensity, apical ischemia. 2. Normal LV contraction, 69% Hospital Course: 64 y/o F PMHx HTN, PreDM, Obesity presents with Chest pain x 3 days. Patient is primarily nepali speaking, thus a [employer] interpretor was used ([employer] [id number]). Patient says the chest pain is primarily over the left chest, Reproducible with palpation, Nonpleuritic, Nonexertional, 9/10 at worst, currently 0/10 during my interview. Patient says she cannot recall what she was doing when the pain came on 3 days ago, but says it comes and goes and is described as sharp and pressure like without radiation. This AM while asleep, the pain woke her prompting her to [facility]. EMS gave 1 nitro in route and patient was brought to [facility]. This is the first time she has felt pain like this. In addition to palpation, the pain is reproduced with Left arm movement. Denies any recent trauma; No associated falls, MVA's, or heavy lifting. She has tried a muscle relaxant (unable to specify the name) without relief, otherwise she not tried anything else at home to relieve the pain but the pain has improved since arrival in the ED. Endorses normally being able to ambulate 1-2 blocks before fatigue sets in. Endorses Medication noncompliance; has not seen her PCP in 4 months and has not taken meds in the past 6 months. Denies any fevers, chills, Palpitations, SOB, Nausea, vomiting, diarrhea, constipation, dysuria, Hematuria, headache, rash/ Denies any recent medication changes or sick contacts. Hospital Course: Pt underwent nuclear stress testing which revealed mild intensity apical ischemia. Medical management continued and patient advised to make lifestyle changes. Pt discharged with primary care and cardiology follow up. (as per daughter, pt received care at [facility] out clinics and since she recently moved to [place] she has not followed up and would like to establish care with providers in [place].) Health Concerns: Discharge Instructions for Angina You have been diagnosed with a type of chest pain called angina. Angina occurs when your heart muscle doesn't get enough oxygen. It's most often felt under your breastbone, in your left shoulder, or down your left arm. The pain may even spread to your jaw or back. Exercise, increased activity, emotional upset, or stress can trigger this pain. With proper treatment and lifestyle changes to reduce risk factors, most people with angina are able to maintain a full and active life. Managing risk factors Your healthcare provider will work with you to make lifestyle changes as needed. This can help prevent worsening of coronary artery disease, which is likely the cause of your angina. Coronary artery disease is a narrowing of the blood vessels that supply oxygen and nutrients to the heart muscle. The blood vessels can also spasm and reduce the oxygen reaching the heart muscle from the narrowing inside of the artery. Managing your risk factors may prevent both of these causes of narrowing of your arteries. Diet Your healthcare provider will give you information on dietary changes that you may need to make, based on your situation. Your provider may recommend that you see a registered dietitian for help with diet changes. Try these changes to start: Eat less fat and cholesterol Eat less salt (sodium), especially if you have high blood pressure Eat more fresh vegetables and fruits Eat lean proteins, such as fish, poultry, and legumes (beans and peas), and eat less red meat and processed meats Use low-fat dairy products Use vegetable and nut oils in limited amounts Limit sweets and processed foods such as chips, cookies, and baked goods Limit sodas and high calorie drinks Limit greasy and fried foods, or those high in saturated fat Limit alcohol intake Physical activity Your healthcare provider may recommend that you increase your physical activity if you have not been as active as possible. This may include moderate to vigorous intensity physical activity for at least 30 to 60 minutes each day for at least 5 to 7 days per week. A few examples of moderate to vigorous intensity physical activity include: Walking at a brisk pace, about 3 to 4 miles per hour Jogging or running Swimming or water aerobics Hiking Dancing Martial arts Tennis Riding a bike Don't start or increase your activity level without first seeing your healthcare provider. Weight management If you are overweight, your healthcare provider will work with you to lose weight and lower your BMI (body mass index) to a normal or near-normal level. Making diet changes and increasing physical activity can help. A healthy and reasonable goal for weight loss is to lose 10% of your current weight per year. Smoking If you smoke or use other tobacco products including chewing tobacco or electronic cigarettes (vaping), get help to quit. Enroll in a stop-smoking program to improve your chances of success. You can also join a support group. Talk to your healthcare provider about nicotine replacement products or medicines to help you quit. Stress Learn ways to manage stress to help you deal with stress in your home and work life. Your ability to prioritize your health depends on your mental health and focus. Feeling supported in the rest of your life is pickard to achieving success with your health. Managing medicines Keep a record of your episodes of chest pain. Take these with you when you see your healthcare provider. Take your medicines exactly as directed. Dont skip doses. If you miss a dose, call your healthcare provider right away. If you have unwanted side effects from your medicine, tell your healthcare provider right away. Plan of Treatment: Please call Primary care provider and wire border assembler to establish care in [place], as expressed in our conversation Goals: Reduced lipid levels start exercise regimen Schedule appointment with: [facility] Address: [address] [place] [address] Dr. Ambrocio Stewart [place] Address: [address] [place] [address] Condition: Improved - Instructions Diet, Activity, Other Instructions: 1. continue ASA 81 mg daily 2. Continue Metoprolol Succinate 25 mg daily 3. Continue Atorvastatin 40 mg at bedtime CARDIAC DIET A healthy diet and lifestyle are your best weapons to fight cardiovascular disease. Its not as hard as you may think! Remember, it's the overall pattern of your choices that counts. Make the simple steps below part of your life for long-term benefits to your health and your heart. Use up at least as many calories as you take in. Start by knowing how many calories you should be eating and drinking to maintain your weight. Nutrition and calorie information on food labels is typically based on a 2,000 calorie per day diet. You may need fewer or more calories depending on several factors including age, gender, and level of physical activity. If you are trying not to gain weight, dont eat more calories than you know you can burn up every day. Increase the amount and intensity of your physical activity to burn more calories. Aim for at least 150 minutes of moderate physical activity or 75 minutes of vigorous physical activity (or an equal combination of both) each week. Regular physical activity can help you maintain your weight, keep off weight that you lose and help you reach physical and cardiovascular fitness. If its hard to schedule regular exercise sessions, look for ways to build short bursts of activity into your daily routine, like parking farther away and taking the stairs instead of the elevator. Ideally, your activity should be spread throughout the week. Eat a variety of nutritious foods from all the food groups. You may be eating plenty of food, but your body may not be getting the nutrients it needs to be healthy. Nutrient-rich foods have minerals, protein, whole grains and other nutrients but are lower in calories. They may help you control your weight, cholesterol and blood pressure. Eat an overall healthy dietary pattern that emphasizes: a variety of fruits and vegetables whole grains low-fat dairy products skinless poultry and fish nuts and legumes non-tropical vegetable oils Limit saturated fat, trans fat, sodium, red meat, sweets and sugar-sweetened beverages. If you choose to eat red meat, compare labels and select the leanest cuts available. One of the diets that fits this pattern is the DASH (Dietary Approaches to Stop Hypertension) eating plan. Most healthy eating patterns can be adapted based on calorie requirements and personal and cultural food preferences. Eat less of the nutrient-poor foods. The right number of calories to eat each day is based on your age and physical activity level and whether you're trying to gain, lose or maintain your weight. You could use your daily allotment of calories on a few high-calorie foods and beverages, but you probably wouldnt get the nutrients your body needs to be healthy. Limit foods and beverages high in calories but low in nutrients. Also limit the amount of saturated fat, trans fat and sodium you eat. Read Nutrition Facts labels carefully the Nutrition Facts panel tells you the amount of healthy and unhealthy nutrients in a food or beverage. Referrals: ON STAFF,NOT [Primary Care Provider] - Disposition: HOME - Home Medications Comprehensive Discharge Medication List: Ambulatory Orders Metoprolol Succinate XL 25mg mg PO DAILY 01/12/20 Lipitor 40mg 1 tablet at bedtime Prescription Drug Monitoring Program (I-STOP) results: I-STOP not reviewed Problem List - Problems (1) Chest pain Code(s): R07.9 - CHEST PAIN, UNSPECIFIED Qualifiers: Chest pain type: unspecified Qualified Code(s): R07.9 - Chest pain, unspecified (2) HTN (hypertension) Code(s): I10 - ESSENTIAL (PRIMARY) HYPERTENSION (3) Hypercholesterolemia Code(s): E78.00 - PURE HYPERCHOLESTEROLEMIA, UNSPECIFIED This patient is new to me today: Yes Date on this admission: 01/15/20 Emergency Visit: Yes ED Registration Date: 01/12/20 Care time: The patient presented to the Emergency Department on the above date and was hospitalized for further evaluation of their emergent condition. Critical Care patient: No - Discharge Referral Referred to [facility] No Physician Referral: Ambrocio Childress MD ([facility]) (please call to schedule an appointment)
--- NOTE | 2020-01-15 16:35 | PN ---
Progress Note, Physician History of Present Illness: Ms. Aldridge is a 64 year old female with a significant past medical history of morbid obesity who presents to the ED with chest heaviness since 2AM this morning. Patient stated the pain woke her up from her sleep and that it is more towards the left side. Patient said the pain gets better when she sits up. Patient disclosed she attempted to self medicate with muscle relaxant prior to ED arrival but experienced no relief. Patient moved here from [facility] months ago. Pain is worse with exertion; comes and goes; intermittent. It started about a month ago; has become more severe and sustained for the past 3 days. - Current Medication List Current Medications: Active Medications Aspirin (Asa -) 81 mg PO DAILY [facility] Last Admin: 01/15/20 14:37 Dose: 81 mg Documented by: Atorvastatin Calcium (Lipitor -) 40 mg PO HS [facility] Last Admin: 01/14/20 21:35 Dose: 40 mg Documented by: Dextrose (Glucose Tablet -) 4 gm PO Q6H PRN PRN Reason: HYPOGLYCEMIA Last Admin: 01/15/20 09:19 Dose: 4 gm Documented by: Heparin Sodium (Porcine) (Heparin -) 5,000 unit SQ TID [facility] Last Admin: 01/15/20 14:38 Dose: 5,000 unit Documented by: Ibuprofen (Motrin -) 600 mg PO Q8H PRN PRN Reason: PAIN LEVEL 6-10 Last Admin: 01/14/20 05:59 Dose: 600 mg Documented by: Metoprolol Succinate (Toprol Xl -) 25 mg PO DAILY [facility] Last Admin: 01/15/20 14:37 Dose: 25 mg Documented by: Pantoprazole Sodium (Protonix -) 40 mg PO DAILY [facility] Last Admin: 01/15/20 14:37 Dose: 40 mg Documented by: - Objective Vital Signs: Vital Signs Temperature 97.8 F 01/15/20 14:00 Pulse Rate 59 L 01/15/20 14:00 Respiratory Rate 20 01/15/20 14:00 Blood Pressure 145/68 01/15/20 14:00 O2 Sat by Pulse Oximetry (%) 96 01/15/20 09:00 Labs: CBC, BMP 01/15/20 06:35 01/13/20 05:51 INR, PTT INR 1.04 (0.83-1.09) 01/12/20 11:25 Assessment/Plan - Problems (1) HTN (hypertension) Code(s): I10 - ESSENTIAL (PRIMARY) HYPERTENSION (2) Hypercholesterolemia Code(s): E78.00 - PURE HYPERCHOLESTEROLEMIA, UNSPECIFIED (3) Chest pain Code(s): R07.9 - CHEST PAIN, UNSPECIFIED Qualifiers: Chest pain type: unspecified Qualified Code(s): R07.9 - Chest pain, unspeci fied Assessment/Plan 1. Chest pain, rule out CAD 2. HTN 3. Hypercholesterolemia PLAN: 1. Troponins negative 2. ASA 81 mg QD 3. Continue Metoprolol Succinate 25 mg QD 4. Continue Atorvastatin 40 mg QHS 5. ECHO and MIBI ST pending
[2020-01-15 18:28] VITALS: BP 159/70; TEMP 97.4
== END 2020-01-15 18:33 | disposition home or self-care (01) ==
LOC: JER 10:56 → JERBED 11:54 → J4W 18:28
PROVIDERS: ADMIT Internal Medicine; ATTEND Nurse Practitioner Family
PROC: 3E023GC Introduction of Other Therapeutic Substance into Muscle, Percutaneous Approach (ICD-10-PCS; principal; 2020-01-12)
PROC: 3E033GC Introduction of Other Therapeutic Substance into Peripheral Vein, Percutaneous Approach (ICD-10-PCS; 2020-01-12)
DX: R07.9 Chest pain, unspecified (principal); E78.00 Pure hypercholesterolemia, unspecified; I10 Essential (primary) hypertension; E66.01 Morbid (severe) obesity due to excess calories; Z68.41 Body mass index [BMI] 40.0-44.9, adult; Z91.09 Other allergy status, other than to drugs and biological substances; Z91.14 Patient's other noncompliance with medication regimen; R73.03 Prediabetes
CPT/HCPCS: 36415; 71045-TC-FY; 78452-TC; 80053; 80061; 82550; 82962; 83036; 83721; 83735; 83880; 84100; 84443; 84484; 85025; 85027; 85610; 93005; 93010; 93017; 96372; 96374; 99285-25; A9502; G0378; J1644; J2785; U0003

== ENCOUNTER 2020-03-05 12:25 | Emergency (ER) | payer OTHER ==
[2020-03-05 12:35] VITALS: BP 182/84; PULSE 72; TEMP 98.3; BMI 43.7
--- NOTE | 2020-03-05 12:40 | PDOC ---
History of Present Illness - General Chief Complaint: Pain, Acute Stated Complaint: VOMITING/DIARRHEA Time Seen by Provider: 03/05/20 12:40 - History of Present Illness Initial Comments: 03/05/20 12:40 HPI: This is a 64 y/o female with a PMH of obesity and HTN presenting to the ED because of 7 days of nausea/vomiting and epigastric pain. The nausea occurs after eating solids, but not liquids, and is followed by NBNB emesis about 30 minutes after eating. She last vomited this morning. The epigastric pain is dull an non-radiating and she denies any prior episodes. Her symptoms improved for a few days, but returned and worsened over the past two days. Surgical hx includes umbilical hernia repair. She has been having bowl movements, last one this a.m. Denies diarrhea or blood. She denies any use of etoh. Denies any chest pain, SOB, fever/chills. ROS: GENERAL/CONSTITUTIONAL: No fever/chills, diaphoresis, or weakness. HEENT: No change in vision. No sore throat. CARDIOVASCULAR: No chest pain, palpitations or peripheral edema RESPIRATORY: No shortness of breath, dyspnea with exertion, cough GASTROINTESTINAL: Yes epigastric abdominal pain, nausea, and nbnb emesis. Denies diarrhea or constipation. GENITOURINARY: No dysuria, frequency NEUROLOGIC: No headache, vertigo, focal weakness HEMATOLOGIC/LYMPHATIC: No anemia, easy bleeding, or history of blood clots. PMH: Obesity, HTN PSx: hemorrhoids, umbilical hernia Social Hx: Denied etoh, tobacco, drug use Meds: See nurse note Allergies: See nurse note PE: GENERAL: Awake, alert, and fully oriented, in no acute distress. Patient is cameroonian speaking, daughter at bedside to translate. HEENT: Normocephalic, atraumatic. PERRLA, EOMI. NECK: Normal ROM and supple. CARDIOVASCULAR: Regular rate and rhythm, normal S1 and S2 PULMONARY: No respiratory distress. Breath sounds equal, clear to auscultation bilaterally. ABDOMEN: ttp in epigastric and RUQ, normoactive bowel sounds. No guarding, no rebound. No masses. EXTREMITIES: Normal range of motion, no edema or erythema NEUROLOGICAL: Cranial nerves II through XII grossly intact. Normal speech, normal gait SKIN: Warm, Dry MDM: 03/05/20 13:04 This is a 64 y/o female with a PMH of obesity and HTN presenting to the ED because of 7 days of nausea/vomiting and epigastric pain. - Worse after eating - Having bowel movements - No associated diarrhea - Afebrile. Hemodynamically stable. ddx: cholecystitis, pancreatitis, SBO, gastric ulcer, acs - CBC, CMP, Cardiac profile, LA, lipase - EKG, CXR, U/S RUQ - Tylenol for pain, pepcid, zofran for nausea, fluids - Will order U/S 03/05/20 15:07 - Patient is feeling better after tylenol, pepcid, zofran - She says shes very hungry 03/05/20 15:14 - CBC wnl - Pending CMP, lactic, lipase, troponin and U/S read 03/05/20 15:15 - Alk phos 177 up from 129 in December - LA 1.9 - Lipase 129 - Creatinine .7 - Troponin neg 03/05/20 15:30 U/S: IMPRESSION: Mild diffuse gallbladder wall thickening is noted which could be on the basis of acute or chronic cholecystitis. Additional imaging evaluation is suggested, emergent versus nonemergent as clinically indicated. No definite gallbladder calculus is visualized. There is no biliary tract dilatation. 03/05/20 15:43 - Patient reports that she has no pain, no nausea - No ttp on repeat abdominal exam - Will PO challenge 03/05/20 16:43 - Patient was able to eat without pain, nausea, or vomiting - Patient reports she still has no abdominal pain - Benign repeat abdominal exam - Spoke with patient and daughter about d/c instructions - Patient stable to d/c with outpatient follow-up, return precautions - Will refer to [facility], send zofran to pharmacy Past History - Medical History Allergies/Adverse Reactions: Allergies Allergy/AdvReac Type Severity Reaction Status Date / Time aspirin AdvReac Verified 03/05/20 12:33 Home Medications: Ambulatory Orders Atorvastatin Ca [Lipitor] 40 mg PO HS 30 Days #30 tablet 01/15/20 Metoprolol Succinate [Toprol XL -] 25 mg PO DAILY 30 Days #30 tab.sr.24h 01/15/20 Pantoprazole Sodium [Protonix -] 40 mg PO DAILY 30 Days #30 tablet.ec 01/15/20 Ondansetron HCl [Zofran] 4 mg PO TID PRN #15 tablet 03/05/20 COPD: No CHF: No Diabetes: No HTN: Yes Hypercholesterolemia: No - Immunization History Immunization Up to Date: No - Psycho-Social/Smoking History Smoking History: Never smoked Have you smoked in the past 12 months: No - Substance Abuse Hx (Audit-C & DAST Scrn) How often the patient has a drink containing alcohol: Never Score: In Men: 4 or > Positive; In Women: 3 or > Positive: 0 Screen Result (Pos requires Nsg. Audit-10AR): Negative In the last yr the pt used illegal drug/Rx for NonMed reason: No Score: Yes response is considered Positive: 0 Screen Result (Positive result requires Nsg. DAST-10): Negative *Physical Exam - Vital Signs Last Vital Signs Temp Pulse Resp BP Pulse Ox 98.3 F 72 20 182/84 H 100 03/05/20 12:33 03/05/20 12:33 03/05/20 12:33 03/05/20 12:33 03/05/20 12:33 ED Treatment Course - LABORATORY CBC & Chemistry Diagram: 03/05/20 13:15 03/05/20 13:15 Discharge - Discharge Information Problems reviewed: Yes Clinical Impression/Diagnosis: Nausea & vomiting Qualifiers: Vomiting type: unspecified Vomiting Intractability: non-intractable Qualified Code(s): R11.2 - Nausea with vomiting, unspecified Condition: Improved Disposition: HOME - Admission No - Additional Discharge Information Prescriptions: Ondansetron HCl [Zofran] 4 mg PO TID PRN #15 tablet PRN Reason: Nausea - Follow up/Referral Referrals: [facility] [place] [Provider Group] - Patient Discharge Instructions Patient Printed Discharge Instructions: DI for Nausea -- Adult, DI for Vomiting -- Adult Additional Instructions: You were seen in the ED today because of nausea and vomiting. We did labs which showed an elevated liver enzyme. This has been elevated before and most likely represents something chronic. You should follow up with a primary care physician in the next week. We gave you a referral to the [facility] to find a doctor. We sent a prescription for zofran to your pharmacy. You can take this up to three times a day as needed for nausea. You can also get 20 mg Pepcid over the counter. You should try and only eat bland foods. Don't eat anything fatty or greasy. Please return to the ED with any new or worsening symptoms. Return if you have nausea and vomiting that doesn't go away, if you develop a fever, or your abd ominal pain worsens. - Post Discharge Activity
[2020-03-05] MEDS ORDERED: SODIUM CHLORIDE 0.9% 500 ML INFUS.BAG IV ONE (13:06)
[2020-03-05] MEDS ORDERED: ACETAMINOPHEN 1000 MG/100 ML VIAL (NON FORMULARY) IVPB ONE (13:06)
[2020-03-05] MEDS ORDERED: FAMOTIDINE 20 MG TABLET PO ONE (13:06)
[2020-03-05] MEDS ORDERED: ONDANSETRON 4 MG TABLET PO ONE (13:08)
--- NOTE | 2020-03-05 13:20 | PDOC ---
Attending Attestation - Resident Resident Name: Verito Ware - ED Attending Attestation I have performed the following: I have examined & evaluated the patient, The case was reviewed & discussed with the resident, I agree w/resident's findings & plan, Exceptions are as noted - HPI HPI: 64 yo F history obesity, HTN presents with 7 day history of N/V and epigastric pain, associated with eating solids, not liquids. Vomited this morning. Pain is localized, does nto radiate. Symptoms improved, but then returned again. No diarrhea, no fever, no known sick contacts. - Physicial Exam PE: GENERAL: Awake, alert, and fully oriented, in no acute distress HEAD: No signs of trauma EYES: PERRLA, EOMI, sclera anicteric, conjunctiva clear ENT: Auricles normal inspection, hearing grossly normal, nares patent, oropharynx clear without exudates. Moist mucosa NECK: Normal ROM, supple, no lymphadenopathy, JVD, or masses LUNGS: Breath sounds equal, clear to auscultation bilaterally. No wheezes, and no crackles HEART: Regular rate and rhythm, normal S1 and S2, no murmurs, rubs or gallops ABDOMEN: Soft, +Mild epigastric and RUQ tenderness, normoactive bowel sounds. No guarding, no rebound. No masses EXTREMITIES: Normal range of motion, no edema. No clubbing or cyanosis. No cords, erythema, or tenderness NEUROLOGICAL: Cranial nerves II through XII grossly intact. Normal speech, normal gait. Motor and sensation intact SKIN: Warm, dry, normal turgor, no rashes or lesions noted. - Medical Decision Making Labs show normal TBili, lipase. RUQ sono no acute findings. Improved with GI cocktail. No signs of acute abdomen. Stable for DC home. Discharge - Discharge Information Problems reviewed: Yes Clinical Impression/Diagnosis: Nausea & vomiting Qualifiers: Vomiting type: unspecified Vomiting Intractability: non-intractable Qualified Code(s): R11.2 - Nausea with vomiting, unspecified Condition: Improved Disposition: HOME - Additional Discharge Information Prescriptions: Ondansetron HCl [Zofran] 4 mg PO TID PRN #15 tablet PRN Reason: Nausea - Follow up/Referral Referrals: [facility] [Provider Group] - Patient Discharge Instructions Patient Printed Discharge Instructions: DI for Nausea -- Adult, DI for Vomiting -- Adult Additional Instructions: You were seen in the ED today because of nausea and vomiting. We did labs which showed an elevated liver enzyme. This has been elevated before and most likely represents something chronic. You should follow up with a primary care physician in the next week. We gave you a referral to the [facility] to find a doctor. We sent a prescription for zofran to your pharmacy. You can take this up to three times a day as needed for nausea. You can also get 20 mg Pepcid over the counter. You should try and only eat bland foods. Don't eat anything fatty or greasy. Please return to the ED with any new or worsening symptoms. Return if you have nausea and vomiting that doesn't go away, if you develop a fever, or your abdominal pain worsens. - Post Discharge Activity
[2020-03-05] MEDS ORDERED: ACETAMINOPHEN INJECTION 100 ML IVPB ONE (13:21)
[2020-03-05] MEDS ORDERED: ONDANSETRON *ODT* 4 MG TABLET ONE (13:21)
[2020-03-05] MEDS ORDERED: FAMOTIDINE 20 MG TABLET ONE (13:21)
--- OUTSIDE RECORDS SUMMARY | 2020-03-05 13:23 | XMS ---
:1955 Author Organization [facility] Support Name Relationship Address Phone UE, UNEMPLOYED Unavailable Unavailable Unavailable UE Unavailable Unavailable Unavailable PATY SALAS DAUGHTER [address] [place] [address] PATY SALAS Child [address] [place] [place] [address] Re-disclosure Warning The records that you are about to access may contain information from federally- assisted alcohol or drug abuse programs. If such information is present, then the following federally mandated warning applies: This information has been disclosed to you from records protected by federal confidentiality rules (42 CFR part 2). The federal rules prohibit you from making any further disclosure of this information unless further disclosure is expressly permitted by the written consent of the person to whom it pertains or as otherwise permitted by 42 CFR part 2. A general authorization for the release of medical or other information is NOT sufficient for this purpose. The Federal rules restrict any use of the information to criminally investigate or prosecute any alcohol or drug abuse patient.The records that you are about to access may contain highly sensitive health information, the redisclosure of which is protected by Article 27-F of the [facility] Public Health law. If you continue you may haveaccess to information: Regarding HIV / AIDS; Provided by facilities licensed or operated by the [facility] Office of Mental Health; or Provided by the [facility] Office for People With Developmental Disabilities. If such information is present, then the following [facility] mandated warning applies: This information has been disclosed to you from confidential records which are protected by state law. State law prohibits you from making any further disclosure of this information without the specific written consent of the person to whom it pertains, or as otherwise permitted by law. Any unauthorized further disclosure in violation of state law may result in a fine or detention sentence or both. A general authorization for the release of medical or other information is NOT sufficient authorization for further disclosure. Insurance Providers Payer name Policy type Policy ID Covered Covered constitution party's Policy P marga / Coverage constitution party ID relationship to [employer] ormation type douglas [employer] [id number] SP [id number] MEDICAID [id number] SP [id number] Results ID Date Data Source [id number] 01/12/2020 12:00:00 PM EDT [facility] Name Value Range Interpretation Description Data Sup porting Code Source(s) Document(s ) SARS [facility] coronavirus 2 RNA This lab was ordered by [facility] and reported by [facility]. Procedure
[2020-03-05 14:21] LABS: EOS % 0.8 % (0-4.5); HEMATOCRIT 37.8 % (32.4-45.2); HEMOGLOBIN 12.3 GM/dL (10.7-15.3); LYMPH % 15.9 % (8-40); MCH 28.6 pg (25.7-33.7); MCHC 32.6 g/dl (32.0-36.0); MEAN CELL VOLUME 87.7 fl (80-96); MEAN PLT VOLUME 9.2 fl (7.5-11.1); MONO % 3.9 % (3.8-10.2); NEUT % 78.4 % (42.8-82.8); PLATELET COUNT 369 K/MM3 (134-434); RDW 15.8 % (11.6-15.6)
[2020-03-05 15:12] LABS: ALBUMIN 3.2 g/dl (3.4-5.0); ANION GAP 7 MMOL/L (8-16); BLOOD UREA NITROGEN 10.9 mg/dL (7-18); CALCIUM 9.4 mg/dL (8.5-10.1); CHLORIDE 105 mmol/L (98-107); CO2 29 mmol/L (21-32); GLUCOSE,RANDOM 114 mg/dL (74-106); LIPASE 129 U/L (73-393); POTASSIUM 4.9 mmol/L (3.5-5.1); SODIUM 142 mmol/L (136-145)
[2020-03-05 15:14] LABS: CREATININE 0.7 mg/dL (0.55-1.3); SGOT/AST 29 U/L (15-37); SGPT/ALT 20 U/L (13-61)
[2020-03-05 15:16] LABS: ALK PHOS 177 U/L (45-117); BILIRUBIN,TOTAL 0.2 mg/dL (0.2-1); TOT PROT 7.8 g/dl (6.4-8.2)
--- NOTE | 2020-03-06 08:47 | EKG ---
Test Reason : Blood Pressure : / mmHG Vent. Rate : 063 BPM Atrial Rate : 063 BPM P-R Int : 226 ms QRS Dur : 088 ms QT Int : 390 ms P-R-T Axes : 065 061 037 degrees QTc Int : 399 ms POOR DATA QUALITY, INTERPRETATION MAY BE ADVERSELY AFFECTED SINUS RHYTHM WITH 1ST DEGREE A-V BLOCK NONSPECIFIC T WAVE ABNORMALITY ABNORMAL ECG WHEN COMPARED WITH ECG OF 12-JAN-2020 20:06, QT HAS SHORTENED Confirmed by Nigel Walker MD ([id number]) on 03/06/2020 8:46:50 AM Referred By: Confirmed By:Nigel Walker MD
== END 2020-03-05 17:00 | disposition home or self-care (01) ==
LOC: JER 12:25
PROC: 3E0333Z Introduction of Anti-inflammatory into Peripheral Vein, Percutaneous Approach (ICD-10-PCS; principal; 2020-03-05)
DX: R11.2 Nausea with vomiting, unspecified (principal)
CPT/HCPCS: 36415; 71045-TC-FY; 76705-TC; 80053; 83605; 83690; 84484; 85025; 93005; 93010; 99285-25; J0131

== ENCOUNTER 2020-04-15 07:38 | Emergency (ER) | payer OTHER ==
[2020-04-15 07:45] VITALS: BMI 39.0
[2020-04-15] MEDS ORDERED: ONDANSETRON 4 MG/2 ML VIAL IVPUSH ONE (08:31)
[2020-04-15] MEDS ORDERED: FAMOTIDINE 20 MG/50 ML IVPB 20 MG/50 ML MG IVPB ONE ×2 (08:58→09:38)
[2020-04-15] MEDS ORDERED: MAG HYDROX/AL HYDROX/SIMETH 30 ML UNIT-DOSE CUP PO ONE (08:58)
[2020-04-15 09:30] LABS: BASO % 0.5 % (0-2.0); EOS % 2.3 % (0-4.5); HEMATOCRIT 39.2 % (32.4-45.2); HEMOGLOBIN 12.8 GM/dL (10.7-15.3); LYMPH % 22.7 % (8-40); MCHC 32.5 g/dl (32.0-36.0); MEAN CELL VOLUME 86.2 fl (80-96); MEAN PLT VOLUME 8.9 fl (7.5-11.1); MONO % 7.3 % (3.8-10.2); NEUT % 67.2 % (42.8-82.8); PLATELET COUNT 392 K/MM3 (134-434); RBC 4.55 M/mm3 (3.60-5.2); RDW 15.4 % (11.6-15.6); WHITE BLOOD COUNT 8.8 K/mm3 (4.0-10.0)
[2020-04-15] MEDS ORDERED: MAG HYDROX/AL HYDROX/SIMETH 30 ML UNIT-DOSE CUP ONE (09:37)
[2020-04-15 09:39] LABS: INR 1.06 (0.83-1.09); PROTHROMBIN TIME (PATIENT) 12.8 SEC (9.7-13.0)
[2020-04-15 09:42] LABS: ACTIVATED PTT 31.6 SECONDS (25.2-36.5)
[2020-04-15 09:57] LABS: CHLORIDE 104 mmol/L (98-107); SODIUM 139 mmol/L (136-145)
[2020-04-15 09:59] LABS: CALCIUM 9.1 mg/dL (8.5-10.1)
[2020-04-15 10:00] LABS: ALBUMIN 3.3 g/dl (3.4-5.0); ANION GAP 5 MMOL/L (8-16); BLOOD UREA NITROGEN 13.4 mg/dL (7-18); CO2 31 mmol/L (21-32); GLUCOSE,RANDOM 108 mg/dL (74-106); LIPASE 99 U/L (73-393)
[2020-04-15 10:03] LABS: CREATININE 0.7 mg/dL (0.55-1.3); SGOT/AST 26 U/L (15-37); SGPT/ALT 22 U/L (13-61)
[2020-04-15 10:04] LABS: BILIRUBIN,TOTAL 0.8 mg/dL (0.2-1)
[2020-04-15 10:05] LABS: ALK PHOS 194 U/L (45-117); TOT PROT 7.9 g/dl (6.4-8.2)
[2020-04-15 11:22] VITALS: BP 158/80; PULSE 74; TEMP 98
== END 2020-04-15 11:22 | disposition home or self-care (01) ==
LOC: JER 07:38
PROC: 3E033NZ Introduction of Analgesics, Hypnotics, Sedatives into Peripheral Vein, Percutaneous Approach (ICD-10-PCS; principal; 2020-04-15)
PROC: 3E033GC Introduction of Other Therapeutic Substance into Peripheral Vein, Percutaneous Approach (ICD-10-PCS; 2020-04-15)
DX: R10.13 Epigastric pain (principal)
CPT/HCPCS: 36415; 71045-TC-FY; 76700-TC; 80053; 82550; 83690; 84484; 85025; 85610; 85730; 93005; 93010; 99285-25

== ENCOUNTER 2020-04-16 12:31 | Inpatient (IN) | payer OTHER ==
[2020-04-16] MEDS ORDERED: ONDANSETRON 4 MG/2 ML VIAL IVPUSH ONE (12:35)
[2020-04-16] MEDS ORDERED: SODIUM CHLORIDE 1,000 ML IV STA (12:35)
[2020-04-16] MEDS ORDERED: MAG HYDROX/AL HYDROX/SIMETH 30 ML UNIT-DOSE CUP PO ONE (12:49)
[2020-04-16] MEDS ORDERED: FAMOTIDINE 20 MG/50 ML IVPB 20 MG/50 ML MG IVPB ONE ×2 (12:49→13:01)
[2020-04-16] MEDS ORDERED: MAG HYDROX/AL HYDROX/SIMETH 30 ML UNIT-DOSE CUP ONE (13:01)
[2020-04-16] MEDS ORDERED: PANTOPRAZOLE SODIUM 40 MG VIAL IVPUSH ONE (13:31)
[2020-04-16] MEDS ORDERED: PANTOPRAZOLE SODIUM 40 MG VIAL ONE (14:18)
[2020-04-16 14:51] LABS: CHLORIDE 104 mmol/L (98-107); POTASSIUM 4.5 mmol/L (3.5-5.1); SODIUM 139 mmol/L (136-145)
[2020-04-16 14:54] LABS: ANION GAP 5 MMOL/L (8-16); BLOOD UREA NITROGEN 11.3 mg/dL (7-18); CO2 30 mmol/L (21-32); GLUCOSE,RANDOM 129 mg/dL (74-106); LIPASE 92 U/L (73-393)
[2020-04-16 14:55] LABS: INR 1.09 (0.83-1.09); PROTHROMBIN TIME (PATIENT) 13.4 SEC (9.7-13.0)
[2020-04-16 14:56] LABS: BASO % 0.5 % (0-2.0); EOS % 0.4 % (0-4.5); HEMATOCRIT 36.2 % (32.4-45.2); HEMOGLOBIN 11.5 GM/dL (10.7-15.3); LYMPH % 14.5 % (8-40); MCH 27.3 pg (25.7-33.7); MCHC 31.8 g/dl (32.0-36.0); MEAN PLT VOLUME 9.5 fl (7.5-11.1); MONO % 4.5 % (3.8-10.2); NEUT % 80.1 % (42.8-82.8); PLATELET COUNT 393 K/MM3 (134-434); RBC 4.21 M/mm3 (3.60-5.2); RDW 15.2 % (11.6-15.6); SGPT/ALT 22 U/L (13-61); WHITE BLOOD COUNT 12.4 K/mm3 (4.0-10.0)
[2020-04-16 14:57] LABS: CREATININE 0.7 mg/dL (0.55-1.3); SGOT/AST 33 U/L (15-37)
[2020-04-16 14:58] LABS: BILIRUBIN,TOTAL 0.3 mg/dL (0.2-1); TOT PROT 7.7 g/dl (6.4-8.2)
[2020-04-16 14:59] LABS: ALK PHOS 194 U/L (45-117)
[2020-04-16 15:01] LABS: N-TERMINAL BNP 112.4 pg/ml (5-125)
[2020-04-16] MEDS: PANTOPRAZOLE SODIUM 80 MG in SODIUM CHLORIDE 100 ML IVPB SCH (17:12)
[2020-04-16] MEDS ORDERED: DEXTROSE 5%-0.45% SALINE 1,000 ML IV SCH (18:30)
[2020-04-16] MEDS ORDERED: METOPROLOL TARTRATE 5 MG/5 ML VIAL IVPUSH PRN ×2 (18:35→19:15)
[2020-04-16] MEDS: DEXTROSE 5%-0.45% SALINE 1,000 ML IV SCH (18:51)
[2020-04-16] MEDS: ONDANSETRON 4 MG/2 ML VIAL IVPUSH SCH (20:29)
[2020-04-16 21:28] LABS: HEMATOCRIT 32.1 % (32.4-45.2); HEMOGLOBIN 10.4 GM/dL (10.7-15.3); MCH 27.9 pg (25.7-33.7); MCHC 32.5 g/dl (32.0-36.0); MEAN PLT VOLUME 8.6 fl (7.5-11.1); PLATELET COUNT 330 K/MM3 (134-434); RBC 3.74 M/mm3 (3.60-5.2); RDW 15.1 % (11.6-15.6); WHITE BLOOD COUNT 10.2 K/mm3 (4.0-10.0)
[2020-04-16] MEDS ORDERED: PANTOPRAZOLE 40 MG TABLET PO SCH (22:00)
[2020-04-16 22:21] LABS: URINE APPEARANCE CLEAR; URINE BILIRUBIN NEGATIVE (NEGATIVE); URINE COLOR YELLOW; URINE GLUCOSE (UA) NEGATIVE (NEGATIVE); URINE KETONE NEGATIVE (NEGATIVE); URINE LEUK ESTERASE NEGATIVE (NEGATIVE); URINE NITRITE NEGATIVE (NEGATIVE); URINE PROTEIN NEGATIVE (NEGATIVE); URINE UROBILINOGEN 0.2 mg/dL (0.2-1.0)
[2020-04-17] MEDS: ONDANSETRON 4 MG/2 ML VIAL IVPUSH SCH ×3 (01:04→13:27)
[2020-04-17] MEDS: PANTOPRAZOLE SODIUM 80 MG in SODIUM CHLORIDE 100 ML IVPB SCH ×5 (02:21→21:41)
[2020-04-17 02:57] VITALS: BMI 43.3
[2020-04-17 07:39] LABS: HEMATOCRIT 32.8 % (32.4-45.2); HEMOGLOBIN 10.7 GM/dL (10.7-15.3); MCH 28.4 pg (25.7-33.7); MCHC 32.5 g/dl (32.0-36.0); MEAN CELL VOLUME 87.3 fl (80-96); MEAN PLT VOLUME 8.9 fl (7.5-11.1); PLATELET COUNT 324 K/MM3 (134-434); RBC 3.76 M/mm3 (3.60-5.2); RDW 15.7 % (11.6-15.6)
[2020-04-17 08:06] LABS: INR 1.11 (0.83-1.09); PROTHROMBIN TIME (PATIENT) 13.4 SEC (9.7-13.0)
[2020-04-17 08:18] LABS: BLOOD UREA NITROGEN 8.2 mg/dL (7-18); CALCIUM 8.6 mg/dL (8.5-10.1)
[2020-04-17 08:19] LABS: MAGNESIUM 2.5 mg/dL (1.8-2.4)
[2020-04-17 08:21] LABS: CHOLESTEROL 142 mg/dL (50-200)
[2020-04-17 08:22] LABS: CREATININE 0.7 mg/dL (0.55-1.3); PHOSPHOROUS 3.2 mg/dL (2.5-4.9); TRIGLYCERIDES 67 mg/dL (0-150)
[2020-04-17 08:23] LABS: LDL CHOLESTEROL (ONLY SJRH) 87 mg/dL (5-100)
[2020-04-17 08:25] LABS: HDL CHOLESTEROL 46 mg/dL (40-60)
[2020-04-17 16:28] LABS: HEMATOCRIT 34.1 % (32.4-45.2); HEMOGLOBIN 10.8 GM/dL (10.7-15.3); MCH 27.4 pg (25.7-33.7); MCHC 31.8 g/dl (32.0-36.0); MEAN CELL VOLUME 86.3 fl (80-96); MEAN PLT VOLUME 8.9 fl (7.5-11.1); PLATELET COUNT 342 K/MM3 (134-434); RBC 3.95 M/mm3 (3.60-5.2); RDW 15.4 % (11.6-15.6)
[2020-04-17] MEDS: DEXTROSE 5%-0.45% SALINE 1,000 ML IV SCH (19:11)
[2020-04-18 08:14] LABS: HEMOGLOBIN 10.9 GM/dL (10.7-15.3); MCH 27.1 pg (25.7-33.7); MCHC 31.1 g/dl (32.0-36.0); MEAN PLT VOLUME 8.9 fl (7.5-11.1); PLATELET COUNT 332 K/MM3 (134-434); RBC 4.02 M/mm3 (3.60-5.2); RDW 15.5 % (11.6-15.6); WHITE BLOOD COUNT 6.4 K/mm3 (4.0-10.0)
[2020-04-18 09:12] LABS: POTASSIUM 3.6 mmol/L (3.5-5.1)
[2020-04-18 09:58] LABS: ALBUMIN 2.7 g/dl (3.4-5.0)
[2020-04-18 09:59] LABS: CALCIUM 8.4 mg/dL (8.5-10.1)
[2020-04-18 10:00] LABS: BLOOD UREA NITROGEN 5.7 mg/dL (7-18)
[2020-04-18 10:03] LABS: TOT PROT 6.6 g/dl (6.4-8.2)
[2020-04-18 10:05] LABS: BILIRUBIN,TOTAL 0.2 mg/dL (0.2-1); CREATININE 0.7 mg/dL (0.55-1.3)
[2020-04-18] MEDS ORDERED: PT OWN MED DRAWER 7, Y5N ONE ×2 (10:28→21:15)
[2020-04-18] MEDS: DEXTROSE 5%-0.45% SALINE 1,000 ML IV SCH ×2 (11:05→18:48)
[2020-04-18] MEDS: PANTOPRAZOLE SODIUM 80 MG in SODIUM CHLORIDE 100 ML IVPB SCH ×3 (11:05→21:16)
[2020-04-18] MEDS ORDERED: METOPROLOL TARTRATE 5 MG/5 ML VIAL IVPB PRN ×2 (14:29→14:41)
[2020-04-19] MEDS: PANTOPRAZOLE SODIUM 80 MG in SODIUM CHLORIDE 100 ML IVPB SCH ×3 (05:31→20:56)
[2020-04-19 07:59] LABS: HEMATOCRIT 37.6 % (32.4-45.2); HEMOGLOBIN 11.8 GM/dL (10.7-15.3); MCH 27.2 pg (25.7-33.7); MCHC 31.4 g/dl (32.0-36.0); MEAN CELL VOLUME 86.7 fl (80-96); PLATELET COUNT 380 K/MM3 (134-434); RBC 4.34 M/mm3 (3.60-5.2); RDW 15.3 % (11.6-15.6); WHITE BLOOD COUNT 9.4 K/mm3 (4.0-10.0)
[2020-04-19 08:02] LABS: BLOOD UREA NITROGEN 3.8 mg/dL (7-18); CALCIUM 8.9 mg/dL (8.5-10.1)
[2020-04-19 08:06] LABS: CREATININE 0.6 mg/dL (0.55-1.3)
[2020-04-19] MEDS ORDERED: PT OWN MED DRAWER 7, Y5N ONE ×2 (10:10→15:49)
[2020-04-19] MEDS: DEXTROSE 5%-0.45% SALINE 1,000 ML IV SCH ×2 (15:51→20:56)
[2020-04-20 03:07] LABS: HEP B CORE AB, TOT Negative (Negative)
[2020-04-20] MEDS ORDERED: PT OWN MED DRAWER 7, Y5N ONE ×2 (03:31→15:54)
[2020-04-20] MEDS: PANTOPRAZOLE SODIUM 80 MG in SODIUM CHLORIDE 100 ML IVPB SCH (03:45)
[2020-04-20 08:25] LABS: HEMATOCRIT 34.2 % (32.4-45.2); HEMOGLOBIN 11.1 GM/dL (10.7-15.3); MCH 28.1 pg (25.7-33.7); MCHC 32.4 g/dl (32.0-36.0); MEAN CELL VOLUME 86.7 fl (80-96); MEAN PLT VOLUME 9.3 fl (7.5-11.1); PLATELET COUNT 364 K/MM3 (134-434); RBC 3.95 M/mm3 (3.60-5.2); RDW 15.2 % (11.6-15.6); WHITE BLOOD COUNT 7.8 K/mm3 (4.0-10.0)
[2020-04-20 08:42] LABS: POTASSIUM 3.7 mmol/L (3.5-5.1)
[2020-04-20 08:44] LABS: CALCIUM 8.7 mg/dL (8.5-10.1)
[2020-04-20 08:45] LABS: BLOOD UREA NITROGEN 5.4 mg/dL (7-18)
[2020-04-20 08:49] LABS: CREATININE 0.6 mg/dL (0.55-1.3)
[2020-04-20] MEDS: metoPROLOL SUCCINATE 25 MG TAB.SR.24H (FP) PO SCH (09:23)
[2020-04-20] MEDS: POLYETHYLENE GLYCOL 3350 119 GM BTL PO SCH ×2 (13:50→21:21)
[2020-04-20] MEDS ORDERED: GLYCERIN 1 RECTAL SUPPOSITORY, ADULT RC ONE (14:00)
[2020-04-20] MEDS: DOCUSATE SODIUM 100 MG CAPSULE (FP) PO SCH (21:20)
[2020-04-20] MEDS: PANTOPRAZOLE 40 MG TABLET PO SCH (21:20)
[2020-04-21 08:16] LABS: BASO % 0.8 % (0-2.0); EOS % 2.8 % (0-4.5); HEMATOCRIT 35.4 % (32.4-45.2); HEMOGLOBIN 11.4 GM/dL (10.7-15.3); LYMPH % 30.3 % (8-40); MCH 28.1 pg (25.7-33.7); MCHC 32.2 g/dl (32.0-36.0); MEAN CELL VOLUME 87.1 fl (80-96); MEAN PLT VOLUME 9.3 fl (7.5-11.1); MONO % 7.8 % (3.8-10.2); NEUT % 58.3 % (42.8-82.8); PLATELET COUNT 354 K/MM3 (134-434); RBC 4.06 M/mm3 (3.60-5.2); RDW 15.2 % (11.6-15.6); WHITE BLOOD COUNT 8.5 K/mm3 (4.0-10.0)
[2020-04-21 08:54] LABS: CALCIUM 8.6 mg/dL (8.5-10.1)
[2020-04-21 08:55] LABS: ALBUMIN 2.6 g/dl (3.4-5.0); BLOOD UREA NITROGEN 14.7 mg/dL (7-18)
[2020-04-21 08:57] LABS: MAGNESIUM 2.2 mg/dL (1.8-2.4)
[2020-04-21 08:58] LABS: CREATININE 0.8 mg/dL (0.55-1.3); PHOSPHOROUS 3.9 mg/dL (2.5-4.9)
[2020-04-21] MEDS: metoPROLOL SUCCINATE 25 MG TAB.SR.24H (FP) PO SCH (08:59)
[2020-04-21] MEDS: PANTOPRAZOLE 40 MG TABLET PO SCH ×2 (08:59→21:27)
[2020-04-21] MEDS: POLYETHYLENE GLYCOL 3350 119 GM BTL PO SCH ×2 (08:59→21:27)
[2020-04-21 09:00] LABS: BILIRUBIN,TOTAL 0.2 mg/dL (0.2-1); TOT PROT 6.6 g/dl (6.4-8.2)
[2020-04-21] MEDS ORDERED: POLYETHYLENE GLYCOL 3350 119 GM BTL PO ONE (11:45)
[2020-04-21] MEDS ORDERED: MINERAL OIL ENEMA 133 ML ENEMA RC ONE (14:25)
[2020-04-21] MEDS: SENNOSIDES 8.6MG TABLET (FP) PO SCH (21:27)
[2020-04-21] MEDS: DOCUSATE SODIUM 100 MG CAPSULE (FP) PO SCH (21:27)
[2020-04-22 07:22] LABS: BASO % 0.6 % (0-2.0); EOS % 3.1 % (0-4.5); HEMATOCRIT 36.7 % (32.4-45.2); HEMOGLOBIN 11.6 GM/dL (10.7-15.3); LYMPH % 29.4 % (8-40); MCH 27.4 pg (25.7-33.7); MCHC 31.5 g/dl (32.0-36.0); MEAN PLT VOLUME 9.3 fl (7.5-11.1); MONO % 7.4 % (3.8-10.2); NEUT % 59.5 % (42.8-82.8); PLATELET COUNT 338 K/MM3 (134-434); RBC 4.22 M/mm3 (3.60-5.2); RDW 15.4 % (11.6-15.6); WHITE BLOOD COUNT 9.2 K/mm3 (4.0-10.0)
[2020-04-22 07:51] LABS: POTASSIUM 5.2 mmol/L (3.5-5.1)
[2020-04-22 07:55] LABS: BLOOD UREA NITROGEN 18.2 mg/dL (7-18); CALCIUM 8.5 mg/dL (8.5-10.1)
[2020-04-22 07:58] LABS: CREATININE 0.8 mg/dL (0.55-1.3)
[2020-04-22] MEDS: metoPROLOL SUCCINATE 25 MG TAB.SR.24H (FP) PO SCH (09:28)
[2020-04-22] MEDS: POLYETHYLENE GLYCOL 3350 119 GM BTL PO SCH ×2 (09:28→21:41)
[2020-04-22] MEDS: PANTOPRAZOLE 40 MG TABLET PO SCH ×2 (09:28→21:40)
[2020-04-22] MEDS: SODIUM ZIRCONIUM CYCLOSILICATE (LOKELMA) 5 GM PACKET PO SCH (10:32)
[2020-04-22] MEDS: DOCUSATE SODIUM 100 MG CAPSULE (FP) PO SCH (21:40)
[2020-04-22] MEDS: SENNOSIDES 8.6MG TABLET (FP) PO SCH (21:40)
[2020-04-23 08:43] LABS: HEMOGLOBIN 11.1 GM/dL (10.7-15.3); MCH 28.4 pg (25.7-33.7); MCHC 32.6 g/dl (32.0-36.0); MEAN CELL VOLUME 87.1 fl (80-96); MEAN PLT VOLUME 9.3 fl (7.5-11.1); PLATELET COUNT 337 K/MM3 (134-434); RBC 3.91 M/mm3 (3.60-5.2); RDW 15.7 % (11.6-15.6); WHITE BLOOD COUNT 9.4 K/mm3 (4.0-10.0)
[2020-04-23 08:57] LABS: CALCIUM 8.4 mg/dL (8.5-10.1)
[2020-04-23 08:58] LABS: BLOOD UREA NITROGEN 22.2 mg/dL (7-18)
[2020-04-23 09:01] LABS: CREATININE 0.8 mg/dL (0.55-1.3)
[2020-04-23] MEDS ORDERED: PT OWN MED DRAWER 7, Y5N ONE (09:56)
[2020-04-23] MEDS: metoPROLOL SUCCINATE 25 MG TAB.SR.24H (FP) PO SCH (10:03)
[2020-04-23] MEDS: POLYETHYLENE GLYCOL 3350 119 GM BTL PO SCH ×2 (10:03→21:26)
[2020-04-23] MEDS: SODIUM ZIRCONIUM CYCLOSILICATE (LOKELMA) 5 GM PACKET PO SCH (10:04)
[2020-04-23] MEDS ORDERED: PANTOPRAZOLE 20 MG TABLET PO SCH (10:25)
[2020-04-23] MEDS: PANTOPRAZOLE 40 MG TABLET PO SCH (11:16)
[2020-04-23] MEDS: ATORVASTATIN CA 10 MG TABLET (FP) PO SCH (21:25)
[2020-04-23] MEDS: DOCUSATE SODIUM 100 MG CAPSULE (FP) PO SCH (21:25)
[2020-04-23] MEDS: SENNOSIDES 8.6MG TABLET (FP) PO SCH (21:26)
[2020-04-24] MEDS ORDERED: ACETAMINOPHEN 1000 MG/100 ML VIAL (NON FORMULARY) IVPB ONE (04:06)
[2020-04-24] MEDS ORDERED: MAG HYDROX/AL HYDROX/SIMETH -MYLANTA- ORAL SUSPENSION PO ONE (07:52)
[2020-04-24 08:13] LABS: HEMATOCRIT 35.7 % (32.4-45.2); HEMOGLOBIN 11.4 GM/dL (10.7-15.3); MCH 27.5 pg (25.7-33.7); MCHC 31.9 g/dl (32.0-36.0); MEAN CELL VOLUME 86.3 fl (80-96); MEAN PLT VOLUME 9.3 fl (7.5-11.1); PLATELET COUNT 360 K/MM3 (134-434); RBC 4.14 M/mm3 (3.60-5.2); RDW 15.7 % (11.6-15.6); WHITE BLOOD COUNT 9.7 K/mm3 (4.0-10.0)
[2020-04-24 08:15] LABS: POTASSIUM 5.1 mmol/L (3.5-5.1)
[2020-04-24 08:18] LABS: CALCIUM 8.8 mg/dL (8.5-10.1)
[2020-04-24 08:19] LABS: BLOOD UREA NITROGEN 15.2 mg/dL (7-18)
[2020-04-24 08:22] LABS: CREATININE 0.7 mg/dL (0.55-1.3)
[2020-04-24] MEDS ORDERED: MAG HYDROX/AL HYDROX/SIMETH 30 ML UNIT-DOSE CUP PO ONE (08:30)
[2020-04-24] MEDS ORDERED: PT OWN MED DRAWER 7, Y5N ONE (09:47)
[2020-04-24] MEDS: metoPROLOL SUCCINATE 25 MG TAB.SR.24H (FP) PO SCH (09:52)
[2020-04-24] MEDS: POLYETHYLENE GLYCOL 3350 119 GM BTL PO SCH ×2 (09:52→21:40)
[2020-04-24] MEDS: PANTOPRAZOLE 40 MG TABLET PO SCH (09:52)
[2020-04-24] MEDS: SENNOSIDES 8.6MG TABLET (FP) PO SCH (21:40)
[2020-04-24] MEDS: ATORVASTATIN CA 10 MG TABLET (FP) PO SCH (21:40)
[2020-04-24] MEDS: DOCUSATE SODIUM 100 MG CAPSULE (FP) PO SCH (21:40)
[2020-04-25 06:44] LABS: HEMATOCRIT 34.8 % (32.4-45.2); HEMOGLOBIN 10.9 GM/dL (10.7-15.3); MCHC 31.4 g/dl (32.0-36.0); MEAN PLT VOLUME 9.1 fl (7.5-11.1); PLATELET COUNT 353 K/MM3 (134-434); RBC 4.05 M/mm3 (3.60-5.2); RDW 15.6 % (11.6-15.6); WHITE BLOOD COUNT 8.6 K/mm3 (4.0-10.0)
[2020-04-25 07:08] LABS: POTASSIUM 4.3 mmol/L (3.5-5.1)
[2020-04-25 07:09] LABS: CALCIUM 8.6 mg/dL (8.5-10.1)
[2020-04-25 07:10] LABS: BLOOD UREA NITROGEN 23.3 mg/dL (7-18)
[2020-04-25 07:13] LABS: CREATININE 0.6 mg/dL (0.55-1.3)
[2020-04-25] MEDS: POLYETHYLENE GLYCOL 3350 119 GM BTL PO SCH ×2 (09:41→21:44)
[2020-04-25] MEDS: PANTOPRAZOLE 40 MG TABLET PO SCH (09:41)
[2020-04-25] MEDS: metoPROLOL SUCCINATE 25 MG TAB.SR.24H (FP) PO SCH (09:41)
[2020-04-25] MEDS: DOCUSATE SODIUM 100 MG CAPSULE (FP) PO SCH (21:44)
[2020-04-25] MEDS: SENNOSIDES 8.6MG TABLET (FP) PO SCH (21:44)
[2020-04-25] MEDS: ATORVASTATIN CA 10 MG TABLET (FP) PO SCH (21:44)
[2020-04-26 08:17] LABS: HEMATOCRIT 35.4 % (32.4-45.2); HEMOGLOBIN 11.1 GM/dL (10.7-15.3); MCH 27.4 pg (25.7-33.7); MCHC 31.5 g/dl (32.0-36.0); MEAN PLT VOLUME 9.1 fl (7.5-11.1); PLATELET COUNT 338 K/MM3 (134-434); RBC 4.07 M/mm3 (3.60-5.2); WHITE BLOOD COUNT 8.4 K/mm3 (4.0-10.0)
[2020-04-26] MEDS ORDERED: ONDANSETRON 4 MG/2 ML VIAL IVPUSH PRN ×2 (08:39→12:03)
[2020-04-26] MEDS ORDERED: LACTATED RINGERS SOLUTION 1,000 ML IV SCH ×2 (08:45→12:03)
[2020-04-26] MEDS ORDERED: LIDOCAINE HCL/PF 2% SDV 5ML VIAL ONE (08:52)
[2020-04-26] MEDS ORDERED: KETOROLAC TROMETHAMINE 30 MG/1 ML VIAL ONE (08:52)
[2020-04-26] MEDS ORDERED: ONDANSETRON 4 MG/2 ML VIAL ONE (08:52)
[2020-04-26] MEDS ORDERED: NEOSTIGMINE METHYLSULFATE 0.5 MG/1 ML - 10 ML MDV ONE (08:53)
[2020-04-26] MEDS ORDERED: GLYCOPYRROLATE 0.2 MG/1 ML VIAL ONE (08:53)
[2020-04-26] MEDS ORDERED: DEXAMETHASONE SOD PHOSPHATE 4 MG/1 ML VIAL ONE (08:56)
[2020-04-26] MEDS ORDERED: ROCURONIUM BROMIDE 50 MG/5 ML SYRINGE ONE (08:57)
[2020-04-26] MEDS ORDERED: PROPOFOL 20 ML ONE ×2 (08:57)
[2020-04-26] MEDS ORDERED: SUCCINYLCHOLINE CHLORIDE 200 MG/10 ML SYRINGE ONE (08:57)
[2020-04-26] MEDS: PANTOPRAZOLE 40 MG TABLET PO SCH (09:00)
[2020-04-26] MEDS: metoPROLOL SUCCINATE 25 MG TAB.SR.24H (FP) PO SCH (09:00)
[2020-04-26] MEDS: POLYETHYLENE GLYCOL 3350 119 GM BTL PO SCH ×2 (09:00→21:26)
[2020-04-26 09:25] LABS: POTASSIUM 4.4 mmol/L (3.5-5.1)
[2020-04-26 09:30] LABS: CALCIUM 8.5 mg/dL (8.5-10.1)
[2020-04-26 09:33] LABS: CREATININE 0.6 mg/dL (0.55-1.3)
[2020-04-26] MEDS ORDERED: ceFAZolin SODIUM 1 GM VIAL ONE (10:14)
[2020-04-26] MEDS ORDERED: SEVOFLURANE 250 ML BTL ONE (10:31)
[2020-04-26] MEDS ORDERED: EPHEDRINE SULFATE/0.9% NACL/PF 50 MG/10 ML SYRINGE NR ONE (10:31)
[2020-04-26] MEDS ORDERED: ACETAMINOPHEN 1000 MG/100 ML VIAL (NON FORMULARY) IVPB PRN (10:57)
[2020-04-26] MEDS ORDERED: ACETAMINOPHEN INJECTION 100 ML IVPB ONE (11:21)
[2020-04-26] MEDS ORDERED: ACETAMINOPHEN 1000 MG/100 ML VIAL (NON FORMULARY) IVPB ONE (11:44)
[2020-04-26] MEDS ORDERED: KETOROLAC TROMETHAMINE 15 MG/ML VIAL IVPUSH PRN (12:03)
[2020-04-26] MEDS: oxyCODONE HCL 5 MG TABLET PO PRN (15:08)
[2020-04-26] MEDS: SENNOSIDES 8.6MG TABLET (FP) PO SCH (21:24)
[2020-04-26] MEDS: DOCUSATE SODIUM 100 MG CAPSULE (FP) PO SCH (21:24)
[2020-04-26] MEDS: ATORVASTATIN CA 10 MG TABLET (FP) PO SCH (21:24)
[2020-04-27] MEDS: oxyCODONE HCL 5 MG TABLET PO PRN ×2 (06:00→21:16)
[2020-04-27 06:11] LABS: CARCINOEMBRYONIC ANTIGEN 1.6 ng/mL (0.0-4.7)
[2020-04-27] MEDS ORDERED: PT OWN MED DRAWER 7, Y5N ONE (10:29)
[2020-04-27] MEDS: POLYETHYLENE GLYCOL 3350 119 GM BTL PO SCH ×2 (10:53→21:17)
[2020-04-27] MEDS: PANTOPRAZOLE 40 MG TABLET PO SCH (10:53)
[2020-04-27] MEDS: metoPROLOL SUCCINATE 25 MG TAB.SR.24H (FP) PO SCH (10:53)
[2020-04-27] MEDS: DOCUSATE SODIUM 100 MG CAPSULE (FP) PO SCH (21:17)
[2020-04-27] MEDS: SENNOSIDES 8.6MG TABLET (FP) PO SCH (21:17)
[2020-04-27] MEDS: ATORVASTATIN CA 10 MG TABLET (FP) PO SCH (21:17)
[2020-04-28 08:13] LABS: BASO % 0.6 % (0-2.0); EOS % 2.3 % (0-4.5); HEMATOCRIT 33.9 % (32.4-45.2); HEMOGLOBIN 10.7 GM/dL (10.7-15.3); LYMPH % 30.9 % (8-40); MCH 27.6 pg (25.7-33.7); MCHC 31.7 g/dl (32.0-36.0); MEAN CELL VOLUME 87.2 fl (80-96); MEAN PLT VOLUME 9.3 fl (7.5-11.1); MONO % 6.5 % (3.8-10.2); NEUT % 59.7 % (42.8-82.8); PLATELET COUNT 316 K/MM3 (134-434); RBC 3.89 M/mm3 (3.60-5.2); WHITE BLOOD COUNT 11.2 K/mm3 (4.0-10.0)
[2020-04-28 08:23] LABS: POTASSIUM 4.5 mmol/L (3.5-5.1)
[2020-04-28 08:26] LABS: CALCIUM 8.3 mg/dL (8.5-10.1)
[2020-04-28 08:27] LABS: ALBUMIN 2.5 g/dl (3.4-5.0); BLOOD UREA NITROGEN 20.1 mg/dL (7-18); MAGNESIUM 2.2 mg/dL (1.8-2.4)
[2020-04-28 08:30] LABS: CREATININE 0.7 mg/dL (0.55-1.3); PHOSPHOROUS 3.9 mg/dL (2.5-4.9)
[2020-04-28 08:31] LABS: BILIRUBIN,TOTAL 0.7 mg/dL (0.2-1); TOT PROT 6.2 g/dl (6.4-8.2)
[2020-04-28] MEDS: POLYETHYLENE GLYCOL 3350 119 GM BTL PO SCH ×2 (09:39→23:18)
[2020-04-28] MEDS: PANTOPRAZOLE 40 MG TABLET PO SCH (09:39)
[2020-04-28] MEDS: metoPROLOL SUCCINATE 25 MG TAB.SR.24H (FP) PO SCH (09:39)
[2020-04-28] MEDS: DOCUSATE SODIUM 100 MG CAPSULE (FP) PO SCH (23:19)
[2020-04-28] MEDS: SENNOSIDES 8.6MG TABLET (FP) PO SCH (23:19)
[2020-04-28] MEDS: ATORVASTATIN CA 10 MG TABLET (FP) PO SCH (23:19)
[2020-04-28] MEDS: oxyCODONE HCL 5 MG TABLET PO PRN (23:21)
[2020-04-29 08:26] LABS: BASO % 0.6 % (0-2.0); HEMATOCRIT 34.3 % (32.4-45.2); LYMPH % 33.8 % (8-40); MCH 27.9 pg (25.7-33.7); MEAN PLT VOLUME 9.3 fl (7.5-11.1); MONO % 7.7 % (3.8-10.2); NEUT % 54.9 % (42.8-82.8); PLATELET COUNT 331 K/MM3 (134-434); RBC 3.94 M/mm3 (3.60-5.2); RDW 16.4 % (11.6-15.6); WHITE BLOOD COUNT 9.8 K/mm3 (4.0-10.0)
[2020-04-29] MEDS: metoPROLOL SUCCINATE 25 MG TAB.SR.24H (FP) PO SCH ×2 (08:26→09:30)
[2020-04-29] MEDS: PANTOPRAZOLE 40 MG TABLET PO SCH (13:18)
[2020-04-29] MEDS: POLYETHYLENE GLYCOL 3350 119 GM BTL PO SCH ×2 (13:18→21:50)
[2020-04-29] MEDS: SENNOSIDES 8.6MG TABLET (FP) PO SCH (21:50)
[2020-04-29] MEDS: DOCUSATE SODIUM 100 MG CAPSULE (FP) PO SCH (21:50)
[2020-04-29] MEDS: ATORVASTATIN CA 10 MG TABLET (FP) PO SCH (21:50)
[2020-04-30 08:06] LABS: BASO % 0.3 % (0-2.0); HEMATOCRIT 34.1 % (32.4-45.2); HEMOGLOBIN 10.6 GM/dL (10.7-15.3); LYMPH % 29.5 % (8-40); MCH 27.2 pg (25.7-33.7); MCHC 31.1 g/dl (32.0-36.0); MEAN CELL VOLUME 87.6 fl (80-96); MEAN PLT VOLUME 9.4 fl (7.5-11.1); MONO % 7.2 % (3.8-10.2); PLATELET COUNT 335 K/MM3 (134-434); RBC 3.89 M/mm3 (3.60-5.2); RDW 15.8 % (11.6-15.6); WHITE BLOOD COUNT 9.9 K/mm3 (4.0-10.0)
[2020-04-30 08:13] LABS: POTASSIUM 5.2 mmol/L (3.5-5.1)
[2020-04-30 08:22] LABS: ALBUMIN 2.5 g/dl (3.4-5.0); BLOOD UREA NITROGEN 15.2 mg/dL (7-18); CALCIUM 8.7 mg/dL (8.5-10.1)
[2020-04-30 08:23] LABS: MAGNESIUM 2.3 mg/dL (1.8-2.4)
[2020-04-30 08:26] LABS: BILIRUBIN,TOTAL 0.4 mg/dL (0.2-1); CREATININE 0.6 mg/dL (0.55-1.3); PHOSPHOROUS 3.6 mg/dL (2.5-4.9)
[2020-04-30 08:27] LABS: TOT PROT 6.4 g/dl (6.4-8.2)
[2020-04-30] MEDS: metoPROLOL SUCCINATE 25 MG TAB.SR.24H (FP) PO SCH (09:03)
[2020-04-30] MEDS: POLYETHYLENE GLYCOL 3350 119 GM BTL PO SCH ×2 (09:03→22:13)
[2020-04-30] MEDS: PANTOPRAZOLE 40 MG TABLET PO SCH (09:03)
[2020-04-30] MEDS ORDERED: SODIUM ZIRCONIUM CYCLOSILICATE (LOKELMA) 5 GM PACKET PO SCH (10:30)
[2020-04-30] MEDS ORDERED: SODIUM ZIRCONIUM CYCLOSILICATE (LOKELMA) 5 GM PACKET PO ONE (11:37)
[2020-04-30] MEDS ORDERED: LIDOCAINE HCL 1%, 10 MG/ML (20ML VIAL) ONE ×2 (14:07→15:15)
[2020-04-30] MEDS ORDERED: PROMETHAZINE HCL 25 MG/1 ML VIAL IVPUSH PRN ×2 (14:28→16:40)
[2020-04-30] MEDS ORDERED: ONDANSETRON 4 MG/2 ML VIAL IVPUSH PRN ×3 (14:28→16:40)
[2020-04-30] MEDS ORDERED: LACTATED RINGERS SOLUTION 1,000 ML IV SCH ×2 (14:30→16:40)
[2020-04-30] MEDS ORDERED: PROPOFOL 20 ML ONE (14:44)
[2020-04-30] MEDS ORDERED: MIDAZOLAM HCL 2 MG/2 ML SINGLE DOSE VIAL ONE (14:45)
[2020-04-30] MEDS ORDERED: ceFAZolin SODIUM 1 GM VIAL ONE (14:59)
[2020-04-30] MEDS ORDERED: SODIUM CHLORIDE 0.9% P/F 10 ML VIAL IJ ONE (14:59)
[2020-04-30] MEDS ORDERED: ceFAZolin SODIUM 1 GM VIAL IVPB ONE (15:00)
[2020-04-30] MEDS ORDERED: LIDOCAINE HCL/PF 2% SDV 5ML VIAL ONE (15:01)
[2020-04-30] MEDS ORDERED: LIDOCAINE HCL 1%, 10 MG/ML (20ML VIAL) INF ONE (15:09)
[2020-04-30] MEDS ORDERED: MORPHINE SULFATE 2 MG/ML VIAL IM ONE (21:47)
[2020-04-30] MEDS ORDERED: DOCUSATE SODIUM 100 MG CAPSULE (FP) PO SCH (22:00)
[2020-04-30] MEDS ORDERED: SENNOSIDES 8.6MG TABLET (FP) PO SCH (22:00)
[2020-04-30] MEDS ORDERED: ATORVASTATIN CA 10 MG TABLET (FP) PO SCH (22:00)
[2020-05-01 08:18] LABS: HEMATOCRIT 33.7 % (32.4-45.2); HEMOGLOBIN 10.8 GM/dL (10.7-15.3); MCH 27.5 pg (25.7-33.7); MCHC 32.1 g/dl (32.0-36.0); MEAN CELL VOLUME 85.9 fl (80-96); MEAN PLT VOLUME 9.5 fl (7.5-11.1); PLATELET COUNT 324 K/MM3 (134-434); RBC 3.92 M/mm3 (3.60-5.2); RDW 15.6 % (11.6-15.6); WHITE BLOOD COUNT 9.7 K/mm3 (4.0-10.0)
[2020-05-01] MEDS ORDERED: MORPHINE SULFATE 2 MG/ML VIAL IVPUSH ONE (08:27)
[2020-05-01 08:31] LABS: POTASSIUM 4.6 mmol/L (3.5-5.1)
[2020-05-01 08:43] LABS: CALCIUM 8.5 mg/dL (8.5-10.1)
[2020-05-01 08:47] LABS: BLOOD UREA NITROGEN 16.3 mg/dL (7-18); CREATININE 0.6 mg/dL (0.55-1.3)
[2020-05-01] MEDS ORDERED: PT OWN MED DRAWER 7, Y5N ONE (09:22)
[2020-05-01] MEDS: POLYETHYLENE GLYCOL 3350 119 GM BTL PO SCH (09:26)
[2020-05-01] MEDS ORDERED: PANTOPRAZOLE 40 MG TABLET PO SCH (10:00)
[2020-05-01] MEDS ORDERED: metoPROLOL SUCCINATE 25 MG TAB.SR.24H (FP) PO SCH (10:00)
[2020-05-01 15:26] VITALS: BP 145/68; PULSE 65; TEMP 98.5
== END 2020-05-01 16:42 | disposition home or self-care (01) | DRG 229 ==
LOC: JER 12:31 → JERBED 18:02 → J8W 04-17 00:16
PROVIDERS: ATTEND Internal Medicine
PROC: 0DB78ZX Excision of Stomach, Pylorus, Via Natural or Artificial Opening Endoscopic, Diagnostic (ICD-10-PCS; 2020-04-19)
PROC: 0DB68ZX Excision of Stomach, Via Natural or Artificial Opening Endoscopic, Diagnostic (ICD-10-PCS; principal; 2020-04-19 14:00)
PROC: 0WJG4ZZ Inspection of Peritoneal Cavity, Percutaneous Endoscopic Approach (ICD-10-PCS; 2020-04-26)
PROC: 3E1M38X Irrigation of Peritoneal Cavity using Irrigating Substance, Percutaneous Approach, Diagnostic (ICD-10-PCS; 2020-04-26)
PROC: 0JH63WZ Insertion of Totally Implantable Vascular Access Device into Chest Subcutaneous Tissue and Fascia, Percutaneous Approach (ICD-10-PCS; 2020-04-30)
DX: C16.9 Malignant neoplasm of stomach, unspecified (principal); E66.01 Morbid (severe) obesity due to excess calories; R11.2 Nausea with vomiting, unspecified; E78.5 Hyperlipidemia, unspecified; K21.9 Gastro-esophageal reflux disease without esophagitis; I25.10 Atherosclerotic heart disease of native coronary artery without angina pectoris; E78.00 Pure hypercholesterolemia, unspecified; I10 Essential (primary) hypertension; I89.0 Lymphedema, not elsewhere classified; K29.01 Acute gastritis with bleeding; Z68.41 Body mass index [BMI] 40.0-44.9, adult; R04.2 Hemoptysis; K92.0 Hematemesis; K27.0 Acute peptic ulcer, site unspecified, with hemorrhage; K29.50 Unspecified chronic gastritis without bleeding; R07.89 Other chest pain; E87.5 Hyperkalemia; K59.00 Constipation, unspecified
CPT/HCPCS: 36415; 71045-TC-FY; 71250-TC; 74177-TC; 76000-TC-FY; 80048; 80053; 80061; 81003; 82272; 82378; 82550; 82977; 83036; 83690; 83721; 83735; 83880; 84100; 84132; 84443; 84484; 85025; 85027; 85610; 85730; 86301; 86304; 86704; 86706; 86707; 86708; 86709; 86803; 86850; 86900; 86901; 87086; 87340; 88108; 88305-TC; 88341-TC; 93005; 93010; 93306-TC; 94010; 94760; 97116-GP; 97161-GP; 99285-25; C9803; J0131; J1644; Q9967; U0003